=== PATIENT | male | born 1960 | race Two or more races ===

== ENCOUNTER → 2016-03-27 | Outpatient (CLI) | payer OTHER ==
[~2016-03-27] MED LIST: ASPI-781 PO; ASPI325T32 PO; HYDR-905 PO; IBUP-1542 PO; LISI-313 PO; LYRI25 PO; PANT40TA4 PO; ULT50 PO
--- NOTE | 2016-03-27 16:46 | RADRPT ---
PROCEDURE: Limited x-ray of both lower extremities. CLINICAL INDICATION: Bilateral leg pain. TECHNIQUE: Single frontal view of both lower extremities was obtained from the hips to the calves. COMPARISON: 05/10/2015. FINDINGS: There are moderate degenerative changes of the right knee. There is a new left knee total arthropla sty. There is an old healed fracture of the midshaft of the right fibula. The hips are grossly nor mal. IMPRESSION: 1. New left knee total arthroplasty. 2. No other change from 05/10/2015. RPTAT: QQ .Vladimir Gunderson MD, MD Date Time Electronically viewed and signed by .Vladimir Gunderson MD, MD on 03/27/2016 16:45 .R/
== END | disposition home or self-care (01) ==
LOC: HKI 09:20
PROVIDERS: ATTEND Orthopaedic Surgery
DX: Z01.818 Encounter for other preprocedural examination (principal); M25.562 Pain in left knee; M21.161 Varus deformity, not elsewhere classified, right knee; Z96.652 Presence of left artificial knee joint
CPT/HCPCS: 77073; Z7500; G0463

== ENCOUNTER 2016-04-02 09:32 | Inpatient (IN) | payer OTHER ==
[~2016-04-02] VITALS: Ht 172.7 cm; Wt 93.6 kg
[2016-04-02] VITALS (18 sets, daily range): BP systolic 116–165; BP diastolic 69–94; PULSE 71–88; RESP 13–27; Ht 172.7 cm; Wt 93.6 kg
[~2016-04-02 09:32] MED LIST changes: -ASPI325T32 PO; +BUPIVACAINE LIPOSOME/PF 266 MG/20 ML VIAL INFIL SCH; +CEFAZOLIN 1 GM INJ ONE; +CELECOXIB 400 MG PO X1 DOSE PO SCH; +DEXAMETHASONE 4 MG/ML 1 ML INJ ONE; +EXPAREL NOTE (BUPIVICAINE LIPOSOMAL) XX SCH; +GLYCOPYRROLATE 1 MG INJ ONE; -HYDR-905 PO; +LACTATED RINGER'S 1,000 ML IV SCH; -LYRI25 PO; +PAIN COCKTAIL - VANCOMYCIN IRR SCH; -PANT40TA4 PO; +PREGABALIN 300 MG PO X1 PO SCH; +PROPOFOL 1000 MG INJ ONE; +SOD CHLORIDE 0.9% IV SCH; +SOD CHLORIDE 0.9% IVPB SCH; +SUCCINYLCHOLINE CHLORIDE 100 MG/5 ML SYG IV ONE; +TRANEXAMIC ACID IV SCH; +TRANEXAMIC ACID IVPB SCH; +VANCOMYCIN 1 GM/NS 250 ML X1 BEFORE INCISION IVPB SCH; +oxyCODONE (CR) 10 MG TAB [oxyCONTIN] X1 DOSE PO SCH; +traMADOL 50 MG TAB X 1 DOSE PO SCH
--- NOTE | 2016-04-02 14:13 | HPN ---
Date/Time of Note Date/Time of Note DATE: 04/02/16 TIME: 14:12 Interval H&P Admission Note Pt. seen H&P reviewed: No system changes No change from H&P on 03/19/16 by Kelly Morales. RADHA NIXON MD Apr 02, 2016 14:13
[2016-04-02] MEDS ORDERED: POLYMYXIN B 500000 UNIT INJ ONE (14:45)
[2016-04-02] MEDS ORDERED: SODIUM CL BACTERIOSTATIC 30 ML INJ ONE (14:45)
[2016-04-02] MEDS ORDERED: TOBRAMYCIN 1.2 GM POWDER ONE (14:45)
[2016-04-02] MEDS ORDERED: DEXAMETHASONE 4 MG/ML 1 ML INJ ONE (15:53)
[2016-04-02] MEDS ORDERED: NEOSTIGMINE 3 MG/3 ML SYRINGE ONE (15:56)
[2016-04-02] MEDS ORDERED: PROPOFOL 40 ML ONE (15:56)
[2016-04-02] MEDS ORDERED: ROCURONIUM 50 MG INJ ONE (15:56)
[2016-04-02] MEDS ORDERED: SUCCINYLCHOLINE CHLORIDE 100 MG/5 ML SYG IV ONE ×3 (15:56→18:53)
[2016-04-02] MEDS ORDERED: CEFAZOLIN 1 GM INJ ONE (15:56)
[2016-04-02] MEDS ORDERED: LIDOCAINE 2% (SDV) 5 ML INJ ONE ×2 (15:56→18:52)
[2016-04-02] MEDS ORDERED: BACITRACIN 50000 UNITS INJ ONE (16:20)
[2016-04-02] MEDS ORDERED: MEPERIDINE 25 MG INJ IV PRN (17:00)
[2016-04-02] MEDS ORDERED: HYDROmorphONE (0.2 MG/ML) 10ML SYG IV PRN ×3 (17:00)
[2016-04-02] MEDS ORDERED: ONDANSETRON 4 MG INJ IV PRN ×3 (17:00→20:00)
[2016-04-02] MEDS ORDERED: HYDROmorphONE 1 MG/ML SYG IV PRN ×3 (17:00→20:00)
[2016-04-02] MEDS ORDERED: FENTAnyl 50 MCG/ML VIAL IV PRN ×2 (17:00)
[2016-04-02] MEDS ORDERED: NALOXONE (0.4 MG/ML) INJ IV PRN (17:00)
[2016-04-02] MEDS ORDERED: DIPHENHYDRAMINE 50 MG INJ IV PRN ×2 (17:00)
[2016-04-02] MEDS ORDERED: PROCHLORPERAZINE 10 MG INJ IV PRN (17:00)
[2016-04-02] MEDS: VANCOMYCIN 1 GM INJ ONE ×3 (17:13→17:15)
[2016-04-02] MEDS ORDERED: ONDANSETRON 4 MG INJ ONE (19:03)
[2016-04-02] MEDS ORDERED: DIPHENHYDRAMINE 25 MG CAP PO PRN (20:00)
[2016-04-02] MEDS ORDERED: NACL 0.9% 3 ML SYG IV SCH (20:00)
[2016-04-02] MEDS ORDERED: ASPIRIN (EC) 325 MG TAB PO ONE (20:00)
[2016-04-02] MEDS ORDERED: NA PHOSPHATE/BIPHOS 133 ML ENEMA PR PRN (20:00)
[2016-04-02] MEDS ORDERED: MAGNESIUM HYDROXIDE 30ML CUP PO PRN (20:00)
[2016-04-02] MEDS ORDERED: BISACODYL 10 MG SUPP PR PRN (20:00)
[2016-04-02] MEDS ORDERED: oxyCODONE 5 MG TAB PO PRN (20:00)
--- NOTE | 2016-04-02 20:01 | PN ---
Date/Time of Note Date/Time of Note DATE: 04/02/16 TIME: 19:55 Assessment/Plan Lines/Catheters IV Catheter Type (from Nrsg): Peripheral IV Assessment/Plan Assessment/Plan Stable in PACU s/p revision left TKA -cont vancomycin x 72 hours until culture results -ASA/SCDs -pain meds -monitor drain -check AM labs -OOB with PT POD #1 -d/c kothari in AM -follow up on intra-operative culture results XR of the left knee is pending at this time Subjective 24 Hr Interval Summary Doing well in PACU. Denies pain. Moving all extremities. Exam/Review of Systems Vital Signs Vitals Vital Signs Date Time Temp Pulse Resp B/P Pulse Ox O2 Delivery O2 Flow Rate FiO2 04/02/16 11:30 98.8 84 16 140/94 98 Room Air Intake and Output 04/01/16 04/01/16 04/02/16 15:00 23:00 07:00 Intake Total 0 ml Balance 0 ml Exam Free Text/Dictation Dressing dry Incision clean, dry, and intact without redness or drainage Thigh soft 5/5 Quadriceps, Tibialis Anterior, EHL, Gastroc, Soleus, Peroneals Normal sensation Palpable DT/PT, CR <2 sec No distal edema RYLEY BRIONES PA-C Apr 02, 2016 20:00
--- NOTE | 2016-04-02 20:08 | OPPN ---
Date/Time of Note Date/Time of Note DATE: 04/02/16 TIME: 20:06 Operative/Procedure Note Dictation # [id number] Pre-Operative Diagnosis Mechanical complications Left TKA Post-Operative Diagnosis Same Procedure Revision Left TKA Surgeon: RADHA NIXON MD Etl Architect: RYLEY BRIONES PA-C Anesthesiologist: SKYE CARTAGENA Findings Stiff left TKA Blood Usage/Administration None Implants/Grafts Depuy TC3 Estimated blood loss: 100 - 150 ml's Drains Hemovac x 2 Specimens Aerobic and anaerobic culture x 2 Complications: None Anesthesia type: spinal RADHA NIXON MD Apr 02, 2016 20:08
--- NOTE | 2016-04-02 20:12 | CONS ---
Date/Time of Note Date/Time of Note DATE: 04/02/16 TIME: 20:04 Assessment/Plan Assessment/Plan Additional Assessment/Plan 55 yo male with a past medical history of essential hypertension, ETOH abuse who presents with left knee pain, and schedule TKA revision. 1. s/p Left TKA - post op day #0 - f/u ortho recs, OOB as tolerated, PT eval, pain management, bowel regimen, fall precautions 2. Essential hypertension- continue with lisinopril - hydralazine sbp > 160 3. ETOH abuse - continue with oral thiamine, MVI, folic acid 4. GI ppx - pepcid 5. DVT ppx - as per ortho Thank you Dr. Nixon for letting me participate in the care of this patient. this consult note took greater than 45 min to complete Consultation Date/Type/Reason Admit Date/Time Apr 02, 2016 at 10:27 Date of Consultation: Apr 02, 2016 Type of Consultation: Medicine Reason for Consultation Medical Management Referring Provider: RADHA NIXON MD Hx of Present Illness 55 yo male with a past medical history of essential hypertension, ETOH abuse who presents with left knee pain, and schedule TKA revision. Patient states that the pain was unbearable and causing a lot of discomfort while ambulating. Otherwise denies any chest pain, shortness of breath, loss of consciousness, headaches, urinary/bowel irregularities, fevers/chills, loss of consciousness, nausea/vomiting/diarrhea/constipation, no other constitutional symptoms. 14 point review of systems completed, please refer to HPI for any positive findings Past Medical History ETOH abuse Medical History: hypertension Past Surgical History previous left TKA Family History Significant Family History: cancer (mother from unknown type), diabetes (mother ) Social History Alcohol Use: heavy (4 bottles a day) Smoking Status: Former smoker Drug Use: none Exam/Review of Systems Vital Signs Vitals Vital Signs Date Time Temp Pulse Resp B/P Pulse Ox O2 Delivery O2 Flow Rate FiO2 04/02/16 11:30 98.8 84 16 140/94 98 Room Air Intake and Output 04/01/16 04/01/16 04/02/16 15:00 23:00 07:00 Intake Total 0 ml Balance 0 ml Exam Gen Gladis: mild distress 2/2 left knee pain, AAOx4 HEENT: NC/AT, PERRLA, EOMI, no pharyngeal erythema, no tonsillar exudates, no lymphadenopathy, no JVD, no carotid bruits NECK: supple, no thyromegaly THORAX: symmetrical, no obvious deformities CV: S1S2, RRR, no M/G/R Lungs: CTAB no W/C/R/R Abd: soft, NT/ND, +BS, no rebound, no guarding, neg HSM EXT: no edema, no ecchymosis, no clubbing, left knee with drain - serosanguineous fluid noted Neuro: CN II-XII grossly intact, no focal deficits Psych: good mentation, alert and oriented, good mood and affect Skin: C/D/I Medications Medications Current Medications Miscellaneous Information 1 ea NOTE XX Last administered on 04/02/16t 17:43; Admin Dose 1 EA; Start 04/02/16 at 07:00; Stop 04/06/16 at 06:59 Influenza Virus Vaccine (Fluzone) 0.5 ml ONCE ONCE IM* ; Start 04/03/16 at 09:00 ; Stop 04/03/16 at 09:01 Naloxone HCl (Narcan) 0.1 mg Q2M PRN IV FOR RESP RATE 8 OR LESS; Start at 17:00; Stop 04/03/16 at 16:59 Hydromorphone HCl (Dilaudid) 0.2 mg Q3H PRN IV PAIN LEVEL 1-5; Start 04/02/16 at 17:00; Stop 04/03/16 at 16:59 Hydromorphone HCl (Dilaudid) 0.4 mg Q3H PRN IV PAIN LEVEL 6-10; Start 04/02/16 at 17:00; Stop 04/03/16 at 16:59 Diphenhydramine HCl (Benadryl) 25 mg Q6H PRN IV ITCHING; Start 04/02/16 at 17: 00; Stop 04/03/16 at 16:59 Ondansetron HCl (Zofran Inj) 4 mg Q6H PRN IV NAUSEA AND/OR VOMITING; Start 01/07 at 17:00; Stop 04/03/16 at 16:59 Prochlorperazine (Compazine Inj) 10 mg ONCE PRN IV NAUSEA AND/OR VOMITING; Start 04/02/16 at 17:00; Stop 04/03/16 at 16:59 Lisinopril 5 mg 5 mg DAILY PO ; Start 04/03/16 at 09:00 Lactated Ringer's (Lr) 1,000 ml @ 125 mls/hr Q8H IV ; Start 04/02/16 at 19:48 Ketorolac Tromethamine (Toradol) 15 mg Q8H IV ; Start 04/02/16 at 20:00; Stop at 12:01 Celecoxib 200 mg 200 mg DAILY PO ; Start 04/03/16 at 09:00 Acetaminophen (Ofirmev 1000mg/ 100ml Iv) 100 ml @ 400 mls/hr Q6 IVPB ; Start at 00:00; Stop 04/03/16 at 23:59 Tramadol HCl (Ultram) 50 mg Q6 PO ; Start 04/02/16 at 20:00; Stop 04/05/16 at 19 :59 Oxycodone HCl (Roxicodone) 5 mg Q4H PRN PO PAIN LEVEL 1-3; Start 04/02/16 at 20 :00 Oxycodone HCl (Roxicodone) 10 mg Q4H PRN PO PAIN LEVEL 4-7; Start 04/02/16 at 20:00 Hydromorphone HCl 1 mg 1 mg Q3H PRN IV PAIN LEVEL 8-10; Start 04/02/16 at 20:00 Vancomycin HCl (Vancocin) 250 ml @ 125 mls/hr Q12 IVPB ; Start 04/02/16 at 21: 00; Stop 04/05/16 at 20:59; Status UNV Ondansetron HCl (Zofran Inj) 4 mg Q6H PRN IV NAUSEA AND/OR VOMITING; Start 01/07 at 20:00 Bisacodyl (Dulcolax Supp) 10 mg Q12H PRN [place] CONSTIPATION; Start 04/02/16 at 20: 00 Magnesium Hydroxide (Milk Of Mag) 30 ml BID PRN PO CONSTIPATION; Start at 20:00 Sodium Biphosphate/ Sodium Phosphate (Fleet Enema) 133 ml DAILY PRN [place] CONSTIPATION; Start 04/02/16 at 20:00 Docusate Sodium (Colace) 100 mg BID PO ; Start 04/02/16 at 21:00 Diphenhydramine HCl (Benadryl) 25 mg Q6H PRN PO PRURITUS; Start 04/02/16 at 20: 00 Aspirin (Ecotrin) 325 mg BID PO ; Start 04/03/16 at 09:00 Pantoprazole (Protonix Tab) 40 mg BID@,18 PO ; Start 04/03/16 at 06:00 Pregabalin (Lyrica) 50 mg BID PO ; Start 04/02/16 at 21:00 AMNA GAINES MD Apr 02, 2016 20:11
[2016-04-02] MEDS: KETOROLAC 15 MG INJ IV SCH (20:19)
[2016-04-02 20:24] LABS: HEMATOCRIT 38.4 % (42.0-52.0); HEMOGLOBIN 13.2 g/dl (14.0-18.0)
[2016-04-02] MEDS: LACTATED RINGER'S 1,000 ML IV SCH (20:24)
--- NOTE | 2016-04-02 20:25 | RADRPT ---
PROCEDURE: XR Knee. CLINICAL INDICATION: Postoperative left knee for revision arthroplasty. TECHNIQUE: 2 views of the left knee were obtained. The images reviewed on a PACS workstation. COMPARISON: None. FINDINGS: Revision arthroplasty of the left knee with patellar resurfacing. Antibiotic impregnated radiopaque methylmethacrylate cement is seen distributed throughout the left knee joint compartment. Left kne e joint post surgical drains, with mild fluid and air over the joint. The bones appear intact, with no evidence of fracture, erosion, demineralization, or dislocation. Th e alignment of the femorotibial and patellofemoral joints appears normal. No joint space narrowing i s seen. IMPRESSION: 1. Revision arthroplasty with antibiotic impregnated radiopaque methylmethacrylate cement within th e joint compartment. 2. Otherwise, no evident hardware complication or acute fracture. RPTAT: [facility] Physician Armando Date Time Electronically viewed and signed by Physician Armando on 04/02/2016 20:25 RS/
--- NOTE | 2016-04-02 20:29 | RADRPT ---
PROCEDURE: Fluoroscopy services. CLINICAL INDICATION: Revision arthroplasty of the left knee. TECHNIQUE: Fluoroscopy services during left knee revision arthroplasty. COMPARISON: 03/27/2016. FINDINGS: Fluoroscopy services were provided to department of surgery during left knee revision arthroplasty. 9 intraoperative spot films were obtained at intermediate stages during this procedure and demonstra te new revision arthroplasty of the left knee. 0.4 minutes of fluoroscopy time were employed in this procedure. IMPRESSION: Fluoroscopy services during left knee revision arthroplasty. RPTAT: [facility] Physician Armando Date Time Electronically viewed and signed by Physician Armando on 04/02/2016 20:29 RS/
[2016-04-02] MEDS ORDERED: hydrALAzine 20 MG INJ IV PRN (20:30)
[2016-04-02 20:32] LABS: ADD UMIC NO; URINE BILIRUBIN (Dip) NEGATIVE (NEGATIVE); URINE BLOOD (Dip) NEGATIVE (NEGATIVE); URINE COLOR LT. YELLOW (YELLOW); URINE GLUCOSE (Dip) NEGATIVE (NEGATIVE); URINE KETONES (Dip) NEGATIVE (NEGATIVE); URINE LEUKOCYTE ESTERASE (Dip) NEGATIVE (NEGATIVE); URINE NITRITE (Dip) NEGATIVE (NEGATIVE); URINE TOTAL PROTEIN (Dip) NEGATIVE (NEGATIVE); URINE UROBILINOGEN (Dip) 0.2 E.U./dL (0.1-1.0)
[2016-04-02 20:39] LABS: CALCIUM 8.6 mg/dl (8.4-10.2); CREATININE 0.94 mg/dl (0.61-1.24); POTASSIUM 4.7 mmol/L (3.5-5.1)
[2016-04-02] MEDS: DOCUSATE SODIUM 100 MG CAP PO SCH (21:00)
[2016-04-02] MEDS: PREGABALIN 25 MG CAP PO SCH (21:03)
[2016-04-02] MEDS: traMADol 50 MG TAB PO SCH ×2 (21:03→23:06)
--- NOTE | 2016-04-02 21:08 | OPR ---
DATE OF OPERATION: 04/02/2016 PREOPERATIVE DIAGNOSIS: Mechanical complication of left total knee arthroplasty. POSTOPERATIVE DIAGNOSIS: Mechanical complication of left total knee arthroplasty. OPERATION PERFORMED: Revision left total knee arthroplasty. SURGEON: Kedar Clay MD TANK CAR MECHANIC: FRANKY Mock COMPONENTS USED: DePuy size 5 TC3 femur, with a +2 five-degree bolt, a 40-mm universal femoral sleeve, and a 75 x 14 mm femoral stem, size 4 MBT revision tibial tray with a 61-mm metaphyseal sleeve, with a 75 x 14 mm tibial stem, a 12.5 mm polyethylene insert. ANESTHESIA: Spinal, plus general endotracheal intubation, plus periarticular injection. ANESTHESIOLOGIST: Kirk Butler MD TOURNIQUET TIME: 118 minutes. ESTIMATED BLOOD LOSS: 100 mL. INTRAVENOUS FLUIDS: Crystalloid 2600 mL. SPECIMENS: Aerobic and anaerobic culture of joint fluid x2. DRAINS: Hemovac x2. COMPLICATIONS: None. DISPOSITION: Patient tolerated the procedure well; was taken to the recovery room in stable condition. INDICATIONS: The patient is a 55-year-old gentleman who underwent a left total knee arthroplasty approximately a year ago. Despite extensive physical therapy and manipulations, he has had limited range of motion and persistent pain. Infection workup was negative. He had difficulty achieving full extension and flexion beyond 100 degrees. I felt that he would benefit from revision. with possibly a liner exchange or a complete revision, if I was unable to improve his range of motion with just a liner exchange. The risks, benefits, alternatives of the procedure were explained in detail to the patient. I explained the risks to include, but not be limited to, bleeding and the possible need for blood transfusion, infection, pain, stiffness, neurovascular injury, or possible numbness, weakness, and/or paralysis anywhere from the knee down to the toes, fracture, ligamentous injury, need for additional future surgery including possible repeat revision total knee arthroplasty, possible loss of limb including above-knee amputation, wound healing problems, blood clots, pulmonary embolism, and anesthetic complications such as heart attack, stroke, GI bleed, pneumonia and/or . Ample time was allowed for the patient to ask questions, all of which were addressed and answered. He understood the risks involved and wished to proceed. Informed consent was signed prior to the procedure. PROCEDURE IN DETAIL: The left knee was initialed with a marking pen in the preoperative holding area to identify the correct operative site. The patient was then brought to the operating room and transferred from the [facility] to the operating table, where he was administered a spinal anesthetic and then anesthetized and intubated. A Shoemaker catheter was placed. A timeout was performed to confirm the left side was the correct operative site. He was given 1 g of vancomycin and 1 g of intravenous Ancef within 1 hour prior to the incision. A tourniquet was placed on the left proximal thigh. The left knee and lower extremity were prepped and draped in the usual sterile fashion. The left lower extremity was elevated and exsanguinated with the Esmarch tourniquet and the proximal thigh tourniquet was inflated to 300 mmHg. The knee was flexed and the previous midline incision was incised; it was carried down to subcutaneous tissue and fat with sharp dissection. Limited medial and lateral flaps were raised. The previous medial parapatellar arthrotomy was incised. The synovial fluid was normal in color and consistency. I swabbed for aerobic and anaerobic culture x2. A medial release was performed at the joint line to the mid coronal plane. The patella was subluxed laterally and the knee flexed. The polyethylene insert was removed. I trialed with a 5-mm insert; the previous insert was 6 mm. The 5 mm insert was the thinnest insert available. I got the 5-mm insert in place, but the knee was still unable to come to full extension, and flexion was limited to 100 degrees, and I felt he would need to have the entire knee revised. At this point, the Biomet Ultra-Drive device was used to free up the cement bone interface and the femoral and tibial components were removed. Please note , both the femoral and tibial components were well-fixed. The patellar button was well-fixed and left in place. At this point, the tibia was hand reamed up to 14 mm, then broached and then sized to be a 4. The trial was placed in position. The extension gap was checked and accommodated the 12.5 spacer block. At this point, the femoral canal was opened and reamed by hand up to 14 mm and then broached as well, and then the distal cutting block was pinned into place for a 5-degree cleanup cut, taking 2 mm off the distal femur. The oscillating saw was used to make the cut. The size 5, 4-in-1 cutting block was pinned into place with a 12.5 spacer block on top of the tibia, with the knee in 90 degrees of flexion to set the rotation. This was pinned into place. The anterior and posterior chamfer cuts were made. The central box was cut out for a TC3. I had also broached the femur with the metaphyseal sleeves getting a good bite. At this point, the trials were assembled. The knee came to full extension, as evidenced by the fact that with the foot on my abdomen and axial loading, there was no tendency for the knee to flex. The knee was able be flexed to 125 degrees with good patellar tracking, no lateral tilt or subluxation and no varus or valgus instability. C-arm imaging was brought in showing the components to be in good position on AP and lateral views. At this point, the trials were removed. The real components were opened and assembled on the back table. Three bags of cement were mixed with vancomycin mixed into it. Once the cement was in a doughy stage, the real components were cemented into place. The knee was held in full extension. As the cement was hardening, the synovial/capsule layer was infiltrated with a mixture of 0.5% bupivacaine, Duramorph, epinephrine, cefuroxime, Toradol, clonidine, and liposomal bupivacaine. Once the cement was completely hardened, the trial insert was removed. The real 12.5 insert was placed into the tibia and reduced onto the femur. The tourniquet was let down, and there was good hemostasis achieved. The knee was irrigated with antibiotic saline, then Betadine and saline, then additional antibiotic saline pulsatile lavage. A Hemovac drain was placed in the deep portion of the wound and brought out the anterolateral thigh. Stimulan beads that had been mixed with vancomycin and tobramycin were placed in the knee. The capsule was closed with a few interrupted #1 Ethibonds and then running #2 Stratafix. Knee flexion was checked against gravity and came to 120 degrees. The subcutaneous layer was irrigated and closed over a 2nd drain with a running 2-0 Stratafix and then 3-0 Stratafix in the subcutaneous layer and then interrupted 3-0 Prolene in a vertical mattress fashion on the skin edges. The drains were secured with 3-0 nylons. Sponge and needle counts correct at the end of case. The wound was covered with a silver Mepilex and wrapped with sterile cast padding and bias dressing. The patient was awakened, extubated and taken to the recovery room in stable condition. Dictated By: KEDAR WYLIE/NTS Conf#: [id number] DID#: [id number]
[2016-04-02] MEDS: ACETAMINOPHEN 1000MG/100ML IV 100 ML IVPB SCH (23:05)
[2016-04-03] MEDS: VANCOMYCIN 1 GM (PMX) 250 ML IVPB SCH ×2 (01:27→14:33)
[2016-04-03] MEDS: LACTATED RINGER'S 1,000 ML IV SCH ×3 (03:48→19:48)
[2016-04-03] MEDS: PANTOPRAZOLE (EC) 40 MG TAB PO SCH ×2 (05:18→17:21)
[2016-04-03] MEDS: traMADol 50 MG TAB PO SCH ×3 (05:18→17:21)
[2016-04-03] MEDS: KETOROLAC 15 MG INJ IV SCH ×2 (05:18→12:58)
[2016-04-03] MEDS: ACETAMINOPHEN 1000MG/100ML IV 100 ML IVPB SCH ×3 (05:18→17:21)
[2016-04-03 05:21] LABS: HEMATOCRIT 33.6 % (42.0-52.0); HEMOGLOBIN 11.8 g/dl (14.0-18.0)
[2016-04-03 05:31] LABS: POTASSIUM 4.6 mmol/L (3.5-5.1)
[2016-04-03 05:33] LABS: CREATININE 0.7 mg/dl (0.61-1.24)
[2016-04-03 05:34] LABS: CALCIUM 8.7 mg/dl (8.4-10.2)
[2016-04-03 05:44] VITALS: BP 114/73; PULSE 61; RESP 18
[2016-04-03 07:30] LABS: ADD UMIC YES; URINE BILIRUBIN (Dip) NEGATIVE (NEGATIVE); URINE BLOOD (Dip) 1+ (NEGATIVE); URINE COLOR LT. YELLOW (YELLOW); URINE GLUCOSE (Dip) NEGATIVE (NEGATIVE); URINE KETONES (Dip) NEGATIVE (NEGATIVE); URINE LEUKOCYTE ESTERASE (Dip) TRACE (NEGATIVE); URINE NITRITE (Dip) NEGATIVE (NEGATIVE); URINE TOTAL PROTEIN (Dip) NEGATIVE (NEGATIVE); URINE UROBILINOGEN (Dip) 0.2 E.U./dL (0.1-1.0)
[2016-04-03 08:04] VITALS: BP 115/78; RESP 20
--- NOTE | 2016-04-03 08:42 | PN ---
Date/Time of Note Date/Time of Note DATE: 04/03/16 TIME: 08:39 Assessment/Plan Lines/Catheters IV Catheter Type (from Nrsg): Peripheral IV Assessment/Plan Assessment/Plan Stable POD #1, s/p revision left TKA -cont vanco until final culture results -pain meds -ASA/SCDs -empty and monitor drain, will likely remove tomorrow -OOB with PT -encourage incentive spirometry -check AM labs -d/c planning. Will plan to d/c home on 04/05/16 after final culture results Subjective 24 Hr Interval Summary Doing well. No acute overnight events. Pain minimal. Large drain output. VSS, afebrile. Exam/Review of Systems Vital Signs Vitals Vital Signs Date Time Temp Pulse Resp B/P Pulse Ox O2 Delivery O2 Flow Rate FiO2 04/03/16 08:04 98.3 64 20 115/78 96 04/03/16 05:44 Room Air Intake and Output 04/02/16 04/02/16 04/03/16 14:59 22:59 06:59 Intake Total 1000 ml 2575 ml Output Total 820 ml 2370 ml Balance 180 ml 205 ml Exam Free Text/Dictation Hemovac: 890cc Dressing dry Incision clean, dry, and intact without redness or drainage Thigh soft 5/5 Quadriceps, Tibialis Anterior, EHL, Gastroc, Soleus, Peroneals Normal sensation Palpable DT/PT, CR <2 sec No distal edema Results Result Diagram: 04/03/1641904/03/16419 RYLEY BIRONES PA-C Apr 03, 2016 08:41
[2016-04-03] MEDS ORDERED: INFLUENZA VIRUS VACCINE 0.5 ML SYG IM* ONE (09:00)
[2016-04-03] MEDS ORDERED: CELECOXIB 200 MG CAP PO SCH (09:00)
[2016-04-03] MEDS: DOCUSATE SODIUM 100 MG CAP PO SCH ×2 (09:11→20:07)
[2016-04-03] MEDS: MULTIVITAMINS THERAPEUTIC TAB PO SCH (09:11)
[2016-04-03] MEDS: ASPIRIN (EC) 325 MG TAB PO SCH ×2 (09:11→20:07)
[2016-04-03] MEDS: PREGABALIN 25 MG CAP PO SCH ×2 (09:11→20:10)
[2016-04-03] MEDS: FOLIC ACID 1 MG TAB PO SCH (09:11)
[2016-04-03] MEDS: THIAMINE 100 MG TAB PO SCH (09:11)
[2016-04-03] MEDS: LISINOPRIL 5 MG TAB PO SCH (09:12)
--- NOTE | 2016-04-03 10:25 | PN ---
Date/Time of Note Date/Time of Note DATE: 04/03/16 TIME: : Assessment/Plan VTE Prophylaxis VTE Prophylaxis Intervention: other Lines/Catheters IV Catheter Type (from Nrsg): Peripheral IV Assessment/Plan Chief Complaint/Hosp Course Assessment and plan: 1. s/p Left TKA - post op day #0 - f/u ortho recs, OOB as tolerated, PT eval, pain management, bowel regimen, fall precautions 2. Essential hypertension- continue with lisinopril - hydralazine sbp > 160 3. ETOH abuse - continue with oral thiamine, MVI, folic acid 4. Anemia-stable, continue to monitor 4. GI ppx - pepcid 5. DVT ppx - as per ortho We will continue monitor patient closely for recommendation management treatment as per clinical course Problems: Subjective 24 Hr Interval Summary Free Text/Dictation Able to ambulate with min assist Denies of any chest pain or shortness of breath Tolerating oral intake Exam/Review of Systems Vital Signs Vitals Vital Signs Date Time Temp Pulse Resp B/P Pulse Ox O2 Delivery O2 Flow Rate FiO2 04/03/16 08:04 98.3 64 20 115/78 96 04/03/16 05:44 Room Air Intake and Output 04/02/16 04/02/16 04/03/16 15:00 23:00 07:00 Intake Total 1000 ml 2575 ml Output Total 820 ml 2370 ml Balance 180 ml 205 ml Exam General: The patient is well-developed, Not in acute distress. HEENT: Atraumatic, normocephalic. The pupils are equal and round . Neck: Supple with full range of motion. Chest: Normal expansion of the thorax during inspiration Lungs: Clear to auscultation bilaterally Heart: Normal S1-S2, Regular rhythm and rate. Abdomen: Soft , nontender, nondistended , bowel sounds are present. Extremities: Normal to inspection, no edema no cyanosis, surgical site is dry and clean drain is in place Neurologic: Normal mental status,The patient is awake, alert and oriented . Results Result Diagram: 04/03/16 0420 04/03/16 0420 Results 24 hrs Laboratory Tests Test 04/02/16 19:53 04/02/16 20:15 04/03/16 04:20 04/03/16 06:30 Urine Bilirubin NEGATIVE NEGATIVE Urine Clarity CLEAR CLEAR Urine Color LT. YELLOW LT. YELLOW Urine Glucose NEGATIVE NEGATIVE Urine Hemoglobin NEGATIVE 1+ H Urine Ketones NEGATIVE NEGATIVE Urine Leukocyte Esterase NEGATIVE TRACE H Urine Nitrite NEGATIVE NEGATIVE Urine Specific [place] 1.010 1.010 Urine Total Protein NEGATIVE NEGATIVE Urine Urobilinogen 0.2 E.U./dL 0.2 E.U./dL Urine pH 7.5 6.0 Anion Gap 16 14 Blood Urea Nitrogen 14 12 Calcium Level 8.6 8.7 Carbon Dioxide Level 25 27 Chloride Level 105 101 Creatinine 0.94 0.70 Glucose Level 140 126 Hematocrit 38.4 L 33.6 L Hemoglobin 13.2 #L 11.8 L Potassium Level 4.7 4.6 Sodium Level 141 137 Urine Microscopic RBC 2-5 Urine Microscopic WBC NONE SEEN Medications Medications Current Medications Miscellaneous Information 1 ea NOTE XX Last administered on 04/02/16t 17:43; Admin Dose 1 EA; Start 04/02/16 at 07:00; Stop 04/06/16 at 06:59 Naloxone HCl (Narcan) 0.1 mg Q2M PRN IV FOR RESP RATE 8 OR LESS; Start at 17:00; Stop 04/03/16 at 16:59 Hydromorphone HCl (Dilaudid) 0.2 mg Q3H PRN IV PAIN LEVEL 1-5; Start 04/02/16 at 17:00; Stop 04/03/16 at 16:59 Hydromorphone HCl (Dilaudid) 0.4 mg Q3H PRN IV PAIN LEVEL 6-10; Start 04/02/16 at 17:00; Stop 04/03/16 at 16:59 Diphenhydramine HCl (Benadryl) 25 mg Q6H PRN IV ITCHING; Start 04/02/16 at 17: 00; Stop 04/03/16 at 16:59 Ondansetron HCl (Zofran Inj) 4 mg Q6H PRN IV NAUSEA AND/OR VOMITING; Start 01/07 at 17:00; Stop 04/03/16 at 16:59 Prochlorperazine (Compazine Inj) 10 mg ONCE PRN IV NAUSEA AND/OR VOMITING; Start 04/02/16 at 17:00; Stop 04/03/16 at 16:59 Lisinopril 5 mg 5 mg DAILY PO Last administered on 04/03/16t 09:12; Admin Dose 5 MG; Start 04/03/16 at 09:00 Lactated Ringer's (Lr) 1,000 ml @ 125 mls/hr Q8H IV Last administered on 20:24; Admin Dose 125 MLS/HR; Start 04/02/16 at 19:48 Ketorolac Tromethamine 15 mg 15 mg Q8H IV Last administered on 04/03/16 05:18 ; Admin Dose 15 MG; Start 04/02/16 at 20:00; Stop 04/03/16 at 12:01 Acetaminophen (Ofirmev 1000mg/ 100ml Iv) 100 ml @ 400 mls/hr Q6 IVPB Last administered on 04/03/16 05:18; Admin Dose 400 MLS/HR; Start 04/03/16 at 00:00 ; Stop 04/03/16 at 23:59 Tramadol HCl (Ultram) 50 mg Q6 PO Last administered on 04/03/16 05:18; Admin Dose 50 MG; Start 04/02/16 at 20:00; Stop 04/05/16 at 19:59 Oxycodone HCl (Roxicodone) 5 mg Q4H PRN PO PAIN LEVEL 1-3; Start 04/02/16 at 20 :00 Oxycodone HCl (Roxicodone) 10 mg Q4H PRN PO PAIN LEVEL 4-7; Start 04/02/16 at 20:00 Hydromorphone HCl 1 mg 1 mg Q3H PRN IV PAIN LEVEL 8-10; Start 04/02/16 at 20:00 Vancomycin HCl (Vancocin) 250 ml @ 125 mls/hr Q12H IVPB Last administered on 01:27; Admin Dose 125 MLS/HR; Start 04/03/16 at 01:00; Stop 04/05/16 at 14:59 Ondansetron HCl (Zofran Inj) 4 mg Q6H PRN IV NAUSEA AND/OR VOMITING; Start 01/07 at 20:00 Bisacodyl (Dulcolax Supp) 10 mg Q12H PRN [place] CONSTIPATION; Start 04/02/16 at 20: 00 Magnesium Hydroxide (Milk Of Mag) 30 ml BID PRN PO CONSTIPATION; Start at 20:00 Sodium Biphosphate/ Sodium Phosphate (Fleet Enema) 133 ml DAILY PRN [place] CONSTIPATION; Start 04/02/16 at 20:00 Docusate Sodium (Colace) 100 mg BID PO Last administered on 04/03/16 09:11; Admin Dose 100 MG; Start 04/02/16 at 21:00 Diphenhydramine HCl (Benadryl) 25 mg Q6H PRN PO PRURITUS; Start 04/02/16 at 20: 00 Aspirin (Ecotrin) 325 mg BID PO Last administered on 04/03/16 09:11; Admin Dose 325 MG; Start 04/03/16 at 09:00 Pantoprazole (Protonix Tab) 40 mg BID@,18 PO Last administered on 04/03/16 05:18; Admin Dose 40 MG; Start 04/03/16 at 06:00 Pregabalin (Lyrica) 50 mg BID PO Last administered on 04/03/16 09:11; Admin Dose 50 MG; Start 04/02/16 at 21:00 Hydralazine HCl (Apresoline) 10 mg Q6H PRN IV sbp > 160; Start 04/02/16 at 20: 30 Thiamine HCl (Vitamin B1) 100 mg DAILY PO Last administered on 04/03/16 09:11 ; Admin Dose 100 MG; Start 04/03/16 at 09:00 Folic Acid (Folic Acid) 1 mg DAILY PO Last administered on 04/03/16 09:11; Admin Dose 1 MG; Start 04/03/16 at 09:00 Multivitamins Therapeutic (Theragran) 1 tab DAILY PO Last administered on 09:11; Admin Dose 1 TAB; Start 04/03/16 at 09:00 GIO JOSÉ MD Apr 03, 2016 10:25
[2016-04-03 20:56] VITALS: BP 112/70; RESP 18
[2016-04-04 00:19] VITALS: BP 110/68; PULSE 70; RESP 18
[2016-04-04] MEDS: VANCOMYCIN 1 GM (PMX) 250 ML IVPB SCH ×2 (00:27→12:25)
[2016-04-04] MEDS: traMADol 50 MG TAB PO SCH ×5 (00:27→23:55)
[2016-04-04] MEDS: LACTATED RINGER'S 1,000 ML IV SCH ×3 (03:48→19:48)
[2016-04-04] MEDS: PANTOPRAZOLE (EC) 40 MG TAB PO SCH ×2 (04:04→17:44)
[2016-04-04 05:24] LABS: HEMATOCRIT 27.1 % (42.0-52.0); HEMOGLOBIN 9.4 g/dl (14.0-18.0)
[2016-04-04 05:38] LABS: POTASSIUM 4.4 mmol/L (3.5-5.1)
[2016-04-04 05:40] LABS: CREATININE 0.9 mg/dl (0.61-1.24)
[2016-04-04 05:41] LABS: CALCIUM 8.6 mg/dl (8.4-10.2)
[2016-04-04 07:58] VITALS: BP 123/75; RESP 18
[2016-04-04] MEDS: LISINOPRIL 5 MG TAB PO SCH (08:37)
[2016-04-04] MEDS: ASPIRIN (EC) 325 MG TAB PO SCH ×2 (08:37→21:06)
[2016-04-04] MEDS: DOCUSATE SODIUM 100 MG CAP PO SCH ×2 (08:37→21:05)
[2016-04-04] MEDS: THIAMINE 100 MG TAB PO SCH (08:37)
[2016-04-04] MEDS: MULTIVITAMINS THERAPEUTIC TAB PO SCH (08:37)
[2016-04-04] MEDS: FOLIC ACID 1 MG TAB PO SCH (08:37)
[2016-04-04] MEDS: PREGABALIN 25 MG CAP PO SCH ×2 (08:40→21:06)
[2016-04-04] MEDS: oxyCODONE 5 MG TAB PO PRN ×2 (08:41→10:26)
--- NOTE | 2016-04-04 09:44 | PN ---
Date/Time of Note Date/Time of Note DATE: 04/04/16 TIME: 09:42 Assessment/Plan VTE Prophylaxis VTE Prophylaxis Intervention: other (Aspirin) Lines/Catheters IV Catheter Type (from Nrs): Saline Lock Assessment/Plan Chief Complaint/Hosp Course Assessment and plan: 1. s/p Left TKA - post op day #0 - f/u ortho recs, OOB as tolerated, PT eval, pain management, bowel regimen, fall precautions 2. Essential hypertension- continue with lisinopril - hydralazine sbp > 160 3. ETOH abuse - continue with oral thiamine, MVI, folic acid 4. Anemia-stable, continue to monitor, follow-up iron panel and vitamin B12 and folate 4. GI ppx - pepcid 5. DVT ppx - as per ortho We will continue monitor patient closely for recommendation management treatment as per clinical course Problems: Subjective 24 Hr Interval Summary Free Text/Dictation No acute changes Patient denies of any chest pain or shortness of breath Denies of having any left knee pain Tolerating oral intake Exam/Review of Systems Vital Signs Vitals Vital Signs Date Time Temp Pulse Resp B/P Pulse Ox O2 Delivery O2 Flow Rate FiO2 04/04/16 07:58 98.0 62 18 123/75 97 04/04/16 00:19 Room Air Intake and Output 04/03/16 04/03/16 04/04/16 15:00 23:00 07:00 Intake Total 100 ml 2445 ml 1650 ml Output Total 450 ml 300 ml 1200 ml Balance -350 ml 2145 ml 450 ml Exam General: The patient is well-developed, Not in acute distress. HEENT: Atraumatic, normocephalic. The pupils are equal and round . Neck: Supple with full range of motion. Chest: Normal expansion of the thorax during inspiration Lungs: Clear to auscultation bilaterally Heart: Normal S1-S2, Regular rhythm and rate. Abdomen: Soft , nontender, nondistended , bowel sounds are present. Extremities: Normal to inspection, no edema no cyanosis, surgical site is dry and clean, drain in place, Neurologic: Normal mental status,The patient is awake, alert and oriented . Results Result Diagram: 04/04/1641904/04/16419 Results 24 hrs Laboratory Tests Test 04/04/16 04:20 Anion Gap 12 Blood Urea Nitrogen 15 Calcium Level 8.6 Carbon Dioxide Level 28 Chloride Level 104 Creatinine 0.90 Glucose Level 91 Hematocrit 27.1 L Hemoglobin 9.4 #L Potassium Level 4.4 Sodium Level 140 Medications Medications Current Medications Miscellaneous Information 1 ea NOTE XX Last administered on 04/02/16 17:43; Admin Dose 1 EA; Start 04/02/16 at 07:00; Stop 04/06/16 at 06:59 Lisinopril 5 mg 5 mg DAILY PO Last administered on 04/04/16 08:37; Admin Dose 5 MG; Start 04/03/16 at 09:00 Lactated Ringer's (Lr) 1,000 ml @ 125 mls/hr Q8H IV Last administered on 20:24; Admin Dose 125 MLS/HR; Start 04/02/16 at 19:48 Tramadol HCl (Ultram) 50 mg Q6 PO Last administered on 04/04/16 04:04; Admin Dose 50 MG; Start 04/02/16 at 20:00; Stop 04/05/16 at 19:59 Oxycodone HCl (Roxicodone) 5 mg Q4H PRN PO PAIN LEVEL 1-3 Last administered on 04/04/16 08:41; Admin Dose 5 MG; Start 04/02/16 at 20:00 Oxycodone HCl (Roxicodone) 10 mg Q4H PRN PO PAIN LEVEL 4-7; Start 04/02/16 at 20:00 Hydromorphone HCl 1 mg 1 mg Q3H PRN IV PAIN LEVEL 8-10; Start 04/02/16 at 20:00 Vancomycin HCl (Vancocin) 250 ml @ 125 mls/hr Q12H IVPB Last administered on 00:27; Admin Dose 125 MLS/HR; Start 04/03/16 at 01:00; Stop 04/05/16 at 14:59 Ondansetron HCl (Zofran Inj) 4 mg Q6H PRN IV NAUSEA AND/OR VOMITING; Start 01/07 at 20:00 Bisacodyl (Dulcolax Supp) 10 mg Q12H PRN [place] CONSTIPATION; Start 04/02/16 at 20: 00 Magnesium Hydroxide (Milk Of Mag) 30 ml BID PRN PO CONSTIPATION; Start at 20:00 Sodium Biphosphate/ Sodium Phosphate (Fleet Enema) 133 ml DAILY PRN [place] CONSTIPATION; Start 04/02/16 at 20:00 Docusate Sodium (Colace) 100 mg BID PO Last administered on 04/04/16 08:37; Admin Dose 100 MG; Start 04/02/16 at 21:00 Diphenhydramine HCl (Benadryl) 25 mg Q6H PRN PO PRURITUS; Start 04/02/16 at 20: 00 Aspirin (Ecotrin) 325 mg BID PO Last administered on 04/04/16 08:37; Admin Dose 325 MG; Start 04/03/16 at 09:00 Pantoprazole (Protonix Tab) 40 mg BID@,18 PO Last administered on 04/04/16 04:04; Admin Dose 40 MG; Start 04/03/16 at 06:00 Pregabalin (Lyrica) 50 mg BID PO Last administered on 04/04/16 08:40; Admin Dose 50 MG; Start 04/02/16 at 21:00 Hydralazine HCl (Apresoline) 10 mg Q6H PRN IV sbp > 160; Start 04/02/16 at 20: 30 Thiamine HCl (Vitamin B1) 100 mg DAILY PO Last administered on 04/04/16 08:37 ; Admin Dose 100 MG; Start 04/03/16 at 09:00 Folic Acid (Folic Acid) 1 mg DAILY PO Last administered on 04/04/16 08:37; Admin Dose 1 MG; Start 04/03/16 at 09:00 Multivitamins Therapeutic (Theragran) 1 tab DAILY PO Last administered on 08:37; Admin Dose 1 TAB; Start 04/03/16 at 09:00 GIO JOSÉ MD Apr 04, 2016 09:44
--- NOTE | 2016-04-04 17:10 | PN ---
Date/Time of Note Date/Time of Note DATE: 04/04/16 TIME: 17:08 Assessment/Plan Lines/Catheters IV Catheter Type (from Nrsg): Saline Lock Assessment/Plan Assessment/Plan Stable POD #2, s/p revision left TKA -cont abx until cultures are negative -pain meds -ASA/SCDs -OOB with PT -drain removed -H&H low, will monitor for now -check AM labs -dressing changed today -d/c planning. Will plan to transfer to ARU tomorrow Subjective 24 Hr Interval Summary Doing well. No acute overnight events. Drain output slowly decreased. Mild pain with PT. VSS, afebrile. Exam/Review of Systems Vital Signs Vitals Vital Signs Date Time Temp Pulse Resp B/P Pulse Ox O2 Delivery O2 Flow Rate FiO2 04/04/16 07:58 98.0 62 18 123/75 97 04/04/16 00:19 Room Air Intake and Output 04/03/16 04/03/16 04/04/16 15:00 23:00 07:00 Intake Total 100 ml 2445 ml 1650 ml Output Total 450 ml 300 ml 1200 ml Balance -350 ml 2145 ml 450 ml Exam Free Text/Dictation Hemovac: 450cc Dressing dry Incision clean, dry, and intact without redness or drainage Thigh soft 5/5 Quadriceps, Tibialis Anterior, EHL, Gastroc, Soleus, Peroneals Normal sensation Palpable DT/PT, CR <2 sec No distal edema Results Result Diagram: 04/04/1641904/04/16419 RYLEY BRIONES PA-C Apr 04, 2016 17:10
--- NOTE | 2016-04-04 17:16 | PDOCDIS ---
Discharge Instructions DIAGNOSIS Discharge Diagnosis: s/p revision left TKA CONDITION Patient Condition: Good HOME CARE INSTRUCTIONS: Diet Instructions: Regular ACTIVITY: Activity Restrictions: Slowly Increase Activity Rest between Activity Avoid heavy lifting Do not operate Machinery Do not operate Power Tool Avoid Heavy Housework Bathing Restrictions: Shower FOLLOW UP/APPOINTMENTS Appointments follow up with Dr. Clay in the office on 04/12/16 OTHER ORDERS: Other Orders: S/P revision TKA Physical Therapy: Three times per week at home x 2 weeks Daily in Rehab/SNF WB STATUS: WBAT 1. Strengthening exercises for both upper and un-operated lower extremities. 2. Gait training with front wheeled walker 3. Active range of motion exercises to operative knee. 4. When not working on knee range of motion exercises, distal towel roll under operative ankle/distal calf to promote full extension. 5. DO NOT PUT ANYTHING BEHIND OPERATIVE KNEE!!! 6. Quadriceps and hamstring strengthening. 7. May switch to cane in contra lateral hand 6 weeks after surgery. 8. Physical Therapy can open case if nursing is not available. 9. Use Ice Machine as instructed from date of surgery while at rest 3X/day. 10. Patient requires mobile SCDs to reduce risk of developing DVT following TKA. Patient will use the mobile SCDs for 30 days postoperatively. Bathing assistance by home health aide twice weekly if Medicare patient. Occupational Therapy: Evaluation for assistive devices and ADL training. Wound Care: Keep incision dry & covered with Tegaderm until first visit with Dr. Clay Anticoagulation Orders: Enteric Coated Aspirin 325 mg po bid x 6 weeks from date of surgery Follow-up:Call for an appointment with Dr. Clay in 1 week after discharged from hospital at DME Orders: FWW , 3-in-1 Commode, Polar ice machine, Mobile SCDs RYLEY BRIONES PA-C Apr 04, 2016 17:16
[2016-04-04] MEDS ORDERED: PANT40TA4 PO (17:18)
[2016-04-04] MEDS ORDERED: ULT50 PO (17:18)
[2016-04-04] MEDS ORDERED: HYDR-905 PO (17:18)
[2016-04-04] MEDS ORDERED: ASPI325T32 PO (17:18)
[2016-04-04] MEDS ORDERED: LYRI25 PO (17:18)
[2016-04-04 20:40] VITALS: BP 118/72; RESP 18
[2016-04-05] MEDS: VANCOMYCIN 1 GM (PMX) 250 ML IVPB SCH (00:45)
[2016-04-05] MEDS: LACTATED RINGER'S 1,000 ML IV SCH ×2 (03:48→11:48)
[2016-04-05] MEDS: traMADol 50 MG TAB PO SCH ×2 (05:43→11:59)
[2016-04-05] MEDS: PANTOPRAZOLE (EC) 40 MG TAB PO SCH (05:43)
[2016-04-05 05:54] LABS: HEMATOCRIT 28.1 % (42.0-52.0); HEMOGLOBIN 9.9 g/dl (14.0-18.0)
[2016-04-05 06:26] LABS: POTASSIUM 4.3 mmol/L (3.5-5.1)
[2016-04-05 06:28] LABS: CREATININE 0.83 mg/dl (0.61-1.24)
[2016-04-05 06:29] LABS: CALCIUM 8.9 mg/dl (8.4-10.2)
[2016-04-05 06:48] LABS: IRON 27 ug/dl (35-150)
[2016-04-05 06:58] LABS: TOTAL IRON BINDING CAPACITY 276 ug/dl (241-421)
[2016-04-05] MEDS: MULTIVITAMINS THERAPEUTIC TAB PO SCH (08:26)
[2016-04-05] MEDS: DOCUSATE SODIUM 100 MG CAP PO SCH (08:26)
[2016-04-05] MEDS: LISINOPRIL 5 MG TAB PO SCH (08:26)
[2016-04-05] MEDS: THIAMINE 100 MG TAB PO SCH (08:26)
[2016-04-05] MEDS: FOLIC ACID 1 MG TAB PO SCH (08:26)
[2016-04-05] MEDS: ASPIRIN (EC) 325 MG TAB PO SCH (08:26)
[2016-04-05] MEDS: oxyCODONE 5 MG TAB PO PRN (08:27)
[2016-04-05] MEDS: PREGABALIN 25 MG CAP PO SCH (08:27)
[2016-04-05 08:39] VITALS: BP 125/77; RESP 19
--- NOTE | 2016-04-05 09:01 | PN ---
Date/Time of Note Date/Time of Note DATE: 04/05/16 TIME: 09:00 Assessment/Plan Lines/Catheters IV Catheter Type (from Nrsg): Saline Lock Assessment/Plan Assessment/Plan Stable POD #3 s/p revision left TKA -d/c abx, cultures neg x 3 days -pain meds -ASA/SCDs -OOB with PT -dressing changed -transfer to ARU today -follow up with Dr. Clay in the office on 04/12/16 Subjective 24 Hr Interval Summary Doing well. No acute overnight events. Pain mild with ambulation, but otherwise doing well. Afebrile, VSS. Accepted at ARU and plan to transfer today Exam/Review of Systems Vital Signs Vitals Vital Signs Date Time Temp Pulse Resp B/P Pulse Ox O2 Delivery O2 Flow Rate FiO2 04/05/16 08:39 97.8 67 19 125/77 98 04/04/16 00:19 Room Air Intake and Output 04/04/16 04/04/16 04/05/16 15:00 23:00 07:00 Intake Total 1770 ml 650 ml Output Total 2075 ml 2250 ml Balance -305 ml -1600 ml Exam Free Text/Dictation Dressing dry Incision clean, dry, and intact without redness or drainage Thigh soft 5/5 Quadriceps, Tibialis Anterior, EHL, Gastroc, Soleus, Peroneals Normal sensation Palpable DT/PT, CR <2 sec No distal edema Results Result Diagram: 04/05/169 04/05/16 0439 RYLEY BRIONES PA-C Apr 05, 2016 09:01
--- NOTE | 2016-04-05 10:02 | PN ---
Date/Time of Note Date/Time of Note DATE: 04/05/16 TIME: 10:00 Assessment/Plan VTE Prophylaxis VTE Prophylaxis Intervention: other Lines/Catheters IV Catheter Type (from Nrs): Saline Lock Assessment/Plan Chief Complaint/Hosp Course Assessment and plan: 1. s/p Left TKA - post op day #0 - f/u ortho recs, OOB as tolerated, PT eval, pain management, bowel regimen, fall precautions 2. Essential hypertension- continue with lisinopril - hydralazine sbp > 160 3. ETOH abuse - continue with oral thiamine, MVI, folic acid 4. Anemia-stable, continue to monitor, recommend to start on ferrous sulfate 4. GI ppx - pepcid 5. DVT ppx - as per ortho Patient is stable at medical standpoint for discharge with a close follow up with orthopedic surgeon as outpatient Problems: Subjective 24 Hr Interval Summary Free Text/Dictation Patient denies of any chest pain or shortness of breath Denies of any calf pain Ambulating with minimal assist Exam/Review of Systems Vital Signs Vitals Vital Signs Date Time Temp Pulse Resp B/P Pulse Ox O2 Delivery O2 Flow Rate FiO2 04/05/16 08:39 97.8 67 19 125/77 98 04/04/16 00:19 Room Air Intake and Output 04/04/16 04/04/16 04/05/16 15:00 23:00 07:00 Intake Total 1770 ml 650 ml Output Total 2075 ml 2250 ml Balance -305 ml -1600 ml Exam General: The patient is well-developed, Not in acute distress. HEENT: Atraumatic, normocephalic. The pupils are equal and round . Neck: Supple with full range of motion. Chest: Normal expansion of the thorax during inspiration Lungs: Clear to auscultation bilaterally Heart: Normal S1-S2, Regular rhythm and rate. Abdomen: Soft , nontender, nondistended , bowel sounds are present. Extremities: Normal to inspection, no edema no cyanosis, surgical site is dry and clean Neurologic: Normal mental status,The patient is awake, alert and oriented . Results Result Diagram: 04/05/16 0439 04/05/16 0439 Results 24 hrs Laboratory Tests Test 04/05/16 04:39 Anion Gap 12 Blood Urea Nitrogen 10 Calcium Level 8.9 Carbon Dioxide Level 29 Chloride Level 103 Creatinine 0.83 Ferritin 108.0 Folate Glucose Level 92 Hematocrit 28.1 L Hemoglobin 9.9 L Iron Level 27 L Percent Iron Saturation 10 L Potassium Level 4.3 Sodium Level 140 Total Iron Binding Capacity 276 Vitamin B12 Level 419 Medications Medications Current Medications Miscellaneous Information 1 ea NOTE XX Last administered on 04/02/16 17:43; Admin Dose 1 EA; Start 04/02/16 at 07:00; Stop 04/06/16 at 06:59 Lisinopril 5 mg 5 mg DAILY PO Last administered on 04/05/16 08:26; Admin Dose 5 MG; Start 04/03/16 at 09:00 Lactated Ringer's (Lr) 1,000 ml @ 125 mls/hr Q8H IV Last administered on 20:24; Admin Dose 125 MLS/HR; Start 04/02/16 at 19:48 Tramadol HCl (Ultram) 50 mg Q6 PO Last administered on 04/05/16 05:43; Admin Dose 50 MG; Start 04/02/16 at 20:00; Stop 04/05/16 at 19:59 Oxycodone HCl (Roxicodone) 5 mg Q4H PRN PO PAIN LEVEL 1-3 Last administered on 04/05/16 08:27; Admin Dose 5 MG; Start 04/02/16 at 20:00 Oxycodone HCl (Roxicodone) 10 mg Q4H PRN PO PAIN LEVEL 4-7; Start 04/02/16 at 20:00 Hydromorphone HCl 1 mg 1 mg Q3H PRN IV PAIN LEVEL 8-10; Start 04/02/16 at 20:00 Vancomycin HCl (Vancocin) 250 ml @ 125 mls/hr Q12H IVPB Last administered on 00:45; Admin Dose 125 MLS/HR; Start 04/03/16 at 01:00; Stop 04/05/16 at 14:59 Ondansetron HCl (Zofran Inj) 4 mg Q6H PRN IV NAUSEA AND/OR VOMITING; Start 01/07 at 20:00 Bisacodyl (Dulcolax Supp) 10 mg Q12H PRN [place] CONSTIPATION; Start 04/02/16 at 20: 00 Magnesium Hydroxide (Milk Of Mag) 30 ml BID PRN PO CONSTIPATION Last administered on 04/05/16 05:46; Admin Dose 30 ML; Start 04/02/16 at 20:00 Sodium Biphosphate/ Sodium Phosphate (Fleet Enema) 133 ml DAILY PRN [place] CONSTIPATION; Start 04/02/16 at 20:00 Docusate Sodium (Colace) 100 mg BID PO Last administered on 04/05/16 08:26; Admin Dose 100 MG; Start 04/02/16 at 21:00 Diphenhydramine HCl (Benadryl) 25 mg Q6H PRN PO PRURITUS; Start 04/02/16 at 20: 00 Aspirin (Ecotrin) 325 mg BID PO Last administered on 04/05/16 08:26; Admin Dose 325 MG; Start 04/03/16 at 09:00 Pantoprazole (Protonix Tab) 40 mg BID@,18 PO Last administered on 04/05/16 05:43; Admin Dose 40 MG; Start 04/03/16 at 06:00 Pregabalin (Lyrica) 50 mg BID PO Last administered on 04/05/16 08:27; Admin Dose 50 MG; Start 04/02/16 at 21:00 Hydralazine HCl (Apresoline) 10 mg Q6H PRN IV sbp > 160; Start 04/02/16 at 20: 30 Thiamine HCl (Vitamin B1) 100 mg DAILY PO Last administered on 04/05/16 08:26 ; Admin Dose 100 MG; Start 04/03/16 at 09:00 Folic Acid (Folic Acid) 1 mg DAILY PO Last administered on 04/05/16 08:26; Admin Dose 1 MG; Start 04/03/16 at 09:00 Multivitamins Therapeutic (Theragran) 1 tab DAILY PO Last administered on 08:26; Admin Dose 1 TAB; Start 04/03/16 at 09:00 GOI JOSÉ MD Apr 05, 2016 10:02
[2016-04-05] MEDS ORDERED: FERROUS SULFATE (EC) 325 MG TAB PO SCH (11:00)
--- NOTE | 2016-04-06 05:44 | DS ---
DATE OF ADMISSION: 04/02/2016 DATE OF DISCHARGE: 04/05/2016 CONDITION UPON DISCHARGE: Stable. ADMITTING DIAGNOSIS: Painful left total knee arthroplasty. DISCHARGE DIAGNOSIS: Status post revision left knee total arthroplasty. PROCEDURE PERFORMED: Revision left total knee arthroplasty. HOSPITAL COURSE: This is a 55-year-old male who was initially seen in the clinic complaining of lef t knee pain. He had undergone a left TKA with Dr. Clay, however, developed persistent pain and st iffness postoperatively. Risks and benefits of revision surgery were discussed with the patient at length who elected to proceed with a revision left total knee arthroplasty. On 04/02/2016, the jerel ent was admitted and taken to the operating room where he underwent a revision left total knee arthr oplasty. There were no intraoperative complications. The patient tolerated the procedure well. He was taken to the recovery room in stable condition. Pain was well controlled with oral pain medica tion. He was started on aspirin and SCDs for DVT prophylaxis. He remained hemodynamically stable a nd neurovascularly intact throughout his hospital stay. On postoperative day zero, he began physical therapy and continued to make good progress. On postop erative day #3, the patient was evaluated and deemed to be a good candidate for acute rehabilitation unit at [facility]. He was discharged on postop day 3. Prior to being discharge d, the incision was inspected and noted to be clean, dry and intact. Dressing changes were done ambrocio or to patient going to the acute rehabilitation unit. LABORATORY DATA: Laboratory analysis upon discharge: hemoglobin 9.9, hematocrit 28.1. Chemistry hoffmann el was within normal limits. DISCHARGE MEDICATIONS 1. Aspirin 325 mg b.i.d. 2. Tramadol 50 mg. 3. [place] 7.5/325 mg. 4. Protonix 40 mg. 5. Lyrica 50 mg. In addition, the patient is to resume all of his normal home medications. DISCHARGE INSTRUCTIONS: The patient was transferred to acute rehabilitation unit in stable conditio n. He is to resume a normal diet. ACTIVITY: Include weightbearing as tolerated on the surgical lower extremity. Additionally, he is to resume all of his normal home medication. He is to call the office or return to the emergency ro om for any concerns including increased redness, swelling, drainage, fever or any concerns regarding the operation or site of incision. FOLLOWUP: The patient is to follow up with Dr. Clay in the office on 04/12/2016. Dictated By: RYLEY WILKINS for RADHA MACHADO/LINSDEY Conf#: [id number] DID#: [id number]
== END 2016-04-05 13:35 | DRG 468 ==
LOC: REC 10:27 → MS1 20:40
PROVIDERS: ADMIT Orthopaedic Surgery; ATTEND Orthopaedic Surgery
PROC: 0SPW0JZ Removal of Synthetic Substitute from Left Knee Joint, Tibial Surface, Open Approach (ICD-10-PCS; 2016-04-02)
PROC: 0SRU0J9 Replacement of Left Knee Joint, Femoral Surface with Synthetic Substitute, Cemented, Open Approach (ICD-10-PCS; 2016-04-02)
PROC: 0SRW0J9 Replacement of Left Knee Joint, Tibial Surface with Synthetic Substitute, Cemented, Open Approach (ICD-10-PCS; 2016-04-02)
PROC: 0SPD09Z Removal of Liner from Left Knee Joint, Open Approach (ICD-10-PCS; 2016-04-02)
PROC: 0SUW09Z Supplement Left Knee Joint, Tibial Surface with Liner, Open Approach (ICD-10-PCS; 2016-04-02)
PROC: 0SPU0JZ Removal of Synthetic Substitute from Left Knee Joint, Femoral Surface, Open Approach (ICD-10-PCS; principal; 2016-04-02 13:30)
DX: T84.093A Other mechanical complication of internal left knee prosthesis, initial encounter (principal); I10 Essential (primary) hypertension; F10.10 Alcohol abuse, uncomplicated; D64.9 Anemia, unspecified; Y83.8 Other surgical procedures as the cause of abnormal reaction of the patient, or of later complication, without mention of misadventure at the time of the procedure; Y92.89 Other specified places as the place of occurrence of the external cause
CPT/HCPCS: 73560; 73562; 80048; 81001; 81003; 82607; 82728; 82746; 83540; 85014; 85018; 86850; 86900; 86901; 86920; 87070; 87075; 87081; 87086; 88300; 90686; 97110; 97116; 97162; 97165; 97530; C1776; C1713; C9290; J0131; J0171; J0330; J0690; J0735; J1100; J1885; J2274; J2405; J2710; J3370; J7120

== ENCOUNTER 2016-04-05 11:45 | Inpatient (IN) | payer OTHER ==
[~2016-04-05] VITALS: Ht 172.7 cm; Wt 93.6 kg
[~2016-04-05 11:45] MED LIST changes: -ASPI-781 PO; +ASPI325T32 PO; -BUPIVACAINE LIPOSOME/PF 266 MG/20 ML VIAL INFIL SCH; -CEFAZOLIN 1 GM INJ ONE; -CELECOXIB 400 MG PO X1 DOSE PO SCH; -DEXAMETHASONE 4 MG/ML 1 ML INJ ONE; -EXPAREL NOTE (BUPIVICAINE LIPOSOMAL) XX SCH; -GLYCOPYRROLATE 1 MG INJ ONE; +HYDR-905 PO; -IBUP-1542 PO; -LACTATED RINGER'S 1,000 ML IV SCH; +LYRI25 PO; -PAIN COCKTAIL - VANCOMYCIN IRR SCH; +PANT40TA4 PO; -PREGABALIN 300 MG PO X1 PO SCH; -PROPOFOL 1000 MG INJ ONE; -SOD CHLORIDE 0.9% IV SCH; -SOD CHLORIDE 0.9% IVPB SCH; -SUCCINYLCHOLINE CHLORIDE 100 MG/5 ML SYG IV ONE; -TRANEXAMIC ACID IV SCH; -TRANEXAMIC ACID IVPB SCH; -VANCOMYCIN 1 GM/NS 250 ML X1 BEFORE INCISION IVPB SCH; -oxyCODONE (CR) 10 MG TAB [oxyCONTIN] X1 DOSE PO SCH; -traMADOL 50 MG TAB X 1 DOSE PO SCH
[2016-04-05] MEDS ORDERED: NA PHOSPHATE/BIPHOS 133 ML ENEMA PR PRN (14:47)
[2016-04-05] MEDS ORDERED: MAGNESIUM HYDROXIDE 30ML CUP PO PRN (14:47)
[2016-04-05] MEDS ORDERED: BISACODYL 10 MG SUPP PR PRN (14:47)
[2016-04-05] MEDS ORDERED: traMADol 50 MG TAB PO SCH (14:47)
[2016-04-05] MEDS ORDERED: DIPHENHYDRAMINE 25 MG CAP PO PRN (14:48)
[2016-04-05 14:52] VITALS: BP 122/77; PULSE 82; RESP 18
[2016-04-05 15:00] LABS: ADD UMIC NO; URINE BILIRUBIN (Dip) NEGATIVE (NEGATIVE); URINE BLOOD (Dip) NEGATIVE (NEGATIVE); URINE COLOR LT. YELLOW (YELLOW); URINE GLUCOSE (Dip) NEGATIVE (NEGATIVE); URINE KETONES (Dip) NEGATIVE (NEGATIVE); URINE LEUKOCYTE ESTERASE (Dip) NEGATIVE (NEGATIVE); URINE NITRITE (Dip) NEGATIVE (NEGATIVE); URINE TOTAL PROTEIN (Dip) NEGATIVE (NEGATIVE); URINE UROBILINOGEN (Dip) 0.2 E.U./dL (0.1-1.0)
[2016-04-05] MEDS ORDERED: LACTULOSE 30ML CUP PO PRN (16:30)
[2016-04-05] MEDS: PANTOPRAZOLE (EC) 40 MG TAB PO SCH (17:24)
[2016-04-05 19:30] VITALS: BP 112/66; PULSE 75; RESP 18
[2016-04-05] MEDS: PREGABALIN 25 MG CAP PO SCH (20:29)
[2016-04-05] MEDS: ASPIRIN (EC) 325 MG TAB PO SCH (20:29)
[2016-04-05] MEDS: DOCUSATE SODIUM 100 MG CAP PO SCH (20:31)
[2016-04-06] MEDS: PANTOPRAZOLE (EC) 40 MG TAB PO SCH ×2 (06:13→17:27)
[2016-04-06 07:45] VITALS: BP 125/79; RESP 18
[2016-04-06 08:00] VITALS: BP 125/79; PULSE 79; RESP 18
[2016-04-06 08:51] LABS: BASOPHILS % 0.5 % (0.0-2.0); EOSINOPHILS # 0.2 10^3/ul (0.0-0.5); EOSINOPHILS % 3.2 % (0.0-7.0); HEMATOCRIT 30.6 % (42.0-52.0); HEMOGLOBIN 10.9 g/dl (14.0-18.0); LYMPHOCYTES # 1.4 10^3/ul (0.8-2.9); LYMPHOCYTES % 19.1 % (15.0-51.0); MEAN CORPUSCULAR HEMOGLOBIN 32.3 pg (29.0-33.0); MEAN CORPUSCULAR HGB CONC 35.6 g/dl (32.0-37.0); MEAN CORPUSCULAR VOLUME 90.7 fl (82.0-101.0); MEAN PLATELET VOLUME 9.2 fl (7.4-10.4); MONOCYTE # 0.8 10^3/ul (0.3-0.9); NEUTROPHILS % 66.2 % (39.0-77.0); PLATELET COUNT 137 10^3/UL (140-440); RED BLOOD COUNT 3.37 10^6/ul (4.70-6.10); RED CELL DISTRIBUTION WIDTH 14.5 % (11.5-14.5); UNCORRECTED WBC 7.5 10^3/ul (4.8-10.8); WHITE BLOOD COUNT 7.5 10^3/ul (4.8-10.8)
[2016-04-06 08:56] LABS: ALBUMIN 3.4 g/dl (3.3-4.9)
[2016-04-06 08:57] LABS: POTASSIUM 4.9 mmol/L (3.5-5.1)
[2016-04-06 08:59] LABS: BILIRUBIN,INDIRECT 0.6 mg/dl (0-1.1); BILIRUBIN,TOTAL 0.6 mg/dl (0.2-1.3); CALCIUM 9.5 mg/dl (8.4-10.2); CREATININE 0.89 mg/dl (0.61-1.24); TOTAL PROTEIN 6.8 g/dl (6.1-8.1)
[2016-04-06] MEDS: PREGABALIN 25 MG CAP PO SCH ×2 (09:08→20:16)
[2016-04-06] MEDS: DOCUSATE SODIUM 100 MG CAP PO SCH ×2 (09:09→20:16)
[2016-04-06] MEDS: ASPIRIN (EC) 325 MG TAB PO SCH ×2 (09:09→20:16)
[2016-04-06] MEDS: MULTIVITAMINS THERAPEUTIC TAB PO SCH (09:09)
[2016-04-06] MEDS: FERROUS SULFATE (EC) 325 MG TAB PO SCH (09:09)
[2016-04-06] MEDS: LISINOPRIL 5 MG TAB PO SCH (09:09)
[2016-04-06] MEDS: FOLIC ACID 1 MG TAB PO SCH (09:09)
[2016-04-06] MEDS: SENNA TAB PO SCH (09:10)
[2016-04-06 09:29] LABS: CONDITION 1
--- NOTE | 2016-04-06 10:26 | CONS ---
DATE OF ADMISSION: 04/05/2016 DATE OF CONSULTATION: 04/06/2016 REHABILITATION POST ADMISSION PHYSICIAN EVALUATION REHABILITATION IMPAIRMENT CATEGORY: Other orthopedic injury, with left total knee revision. ACTIVE COMORBIDITIES: 1. Acute pain syndrome. 2. Hypertension. 3. History of ETOH abuse. 4. Impairments in self-care and mobility. 5. Degenerative joint disease, with notable pain in the right shoulder. HISTORY OF PRESENT ILLNESS: The patient is a 55-year-old gentleman with a history of degenerative jacque int disease, previous left total knee replacement, essential hypertension and ETOH abuse, who was no raegan to have increasing pain and worsening mobility in the left knee. The patient was noted to have mechanical complications in the left total knee and did undergo a left total knee revision on 2016. The patient's hospital course has been notable for significant pain, in addition to impairmen ts in self-care and mobility as compared to baseline. The patient has been cleared to transfer to [facility] for comprehensive interdisciplinary rehab care. FUNCTIONAL HISTORY: Prior to recent events, he was independent in self-care tasks and mobility. Cu rrently he requires minimal assist for self-care and mobility tasks. SOCIAL HISTORY: The patient lives at home and hopes to return there upon discharge. PAST MEDICAL HISTORY: 1. Hypertension. 2. Degenerative joint disease, with notable pain in the right shoulder. 3. History of left total knee replacement. 4. History of alcohol abuse. CURRENT MEDICATIONS: 1. Ecotrin 325 p.o. b.i.d. 2. Colace 100 mg b.i.d. 3. Folic acid 1 mg p.o. daily. 4. Zestril 5 mg p.o. daily. 5. Multivitamin 1 tab p.o. daily. 6. Oxycodone 5 mg p.o. q.4h. p.r.n. 7. Protonix 40 mg b.i.d. 8. Lyrica 50 mg b.i.d. 9. Ultram 50 mg q.6h. ALLERGIES: PATIENT WITH NO KNOWN DRUG ALLERGIES. PHYSICAL EXAMINATION: VITAL SIGNS: The patient is currently afebrile, with stable vital signs. HEENT: Extraocular motions are intact. Oropharynx is clear. NECK: Supple. LUNGS: Clear anteriorly. CARDIAC: S1, S2. ABDOMEN: Soft, nontender. Positive bowel sounds. NEUROLOGIC: He is awake, alert and oriented x3, can follow simple 1-step commands. He demonstrates good strength in the bilateral upper extremities and lower extremities. He has dorsiflexion and pl j carlos flexion intact on the left. PLAN: The patient has been admitted for comprehensive interdisciplinary acute rehab and is anticipa raegan to tolerate 3 hours of daily therapy in divided doses for at least 5/7 days a week. The treatme nt plan will include: 1. Physical therapy to focus on bed mobility, transfers, and household ambulation, with the goal of having the patient reach a standby assist level. 2. Occupational therapy to focus on hygiene, grooming, dressing, bathing, and toileting activities, with the goal of having the patient reach a standby assist level. 3. Rehabilitation nursing for carryover of therapeutic interventions, with the goal of continent of bowel and bladder, and the goal of pain adequately managed on oral medications. ESTIMATED LENGTH OF STAY: 10 days. DISPOSITION GOAL: Home. I acknowledge that I have performed a full physical examination on this patient within 24 hours of a dmission to the rehabilitation unit and believe the patient is a good candidate for comprehensive in terdisciplinary rehab care and is anticipated to make reasonable goals in a reasonable period of rajni e, as outlined above. REHABILITATION BARRIER: Pain. INTERVENTION FOR BARRIER: Comprehensive interdisciplinary approach. Dictated By: WILLIAM PARHAM/LINDSEY Conf#: [id number] DID#: [id number]
--- NOTE | 2016-04-06 12:09 | PN ---
Date/Time of Note Date/Time of Note DATE: 04/06/16 TIME: 12:07 Assessment/Plan Lines/Catheters IV Catheter Type (from Nrsg): Saline Lock Shoemaker in Place (from Nrsg): No Assessment/Plan Assessment/Plan POD # 4. Stable. -Continue PT for gait training and ROM exercises -OOB with PT -Pain meds -E.C. ASA 325 mg po bid plus bilateral LE SCDs -Encourage IS 10x/hr and OOB to chair several times per day Subjective 24 Hr Interval Summary Patient now in [facility] ARU. Doing well. Pain well controlled. Walked with PT yesterday. Exam/Review of Systems Vital Signs Vitals Vital Signs Date Time Temp Pulse Resp B/P Pulse Ox O2 Delivery O2 Flow Rate FiO2 04/06/16 08:00 98.3 79 18 125/79 97 Room Air Intake and Output 04/05/16 04/05/16 04/06/16 15:00 23:00 07:00 Intake Total 240 ml 240 ml 1750 ml Output Total 500 ml 900 ml 703 ml Balance -260 ml -660 ml 1047 ml Exam Free Text/Dictation Dressing dry Incision clean, dry, and intact without redness or drainage 5/5 Tibialis Anterior, EHL, Gastroc Soleus, Peroneals Normal sensation Palpable DP/PT, CR < 2 Sec No distal edema Results Result Diagram: 04/06/16 0800 04/06/16 0800 RADHA NIXNO MD Apr 06, 2016 12:09
[2016-04-06] MEDS: oxyCODONE 5 MG TAB PO PRN ×2 (13:03→23:10)
--- NOTE | 2016-04-06 16:26 | CONS ---
DATE OF ADMISSION: 04/05/2016 DATE OF CONSULTATION: 04/06/2016 REASON FOR CONSULTATION: Medical management during the course of acute rehabilitation. OTHER AUTO TECH: Dr. Kedar Clay. HISTORY OF PRESENT ILLNESS: This is a very pleasant 55-year-old gentleman with past medical history of essential hypertension, anemia, alcohol abuse in remission, who recently was admitted to [facility] on 04/02/[address] Kedar Clay for mechanical complication of the left total knee arthroplasty and patient had revision of left total knee arthroplasty by Dr. Kedar Clay. The patient tolerated the procedure well and was taken to recovery room and was observed from 7 to 04/05/2016 by medical team and Dr. Kedar Clay. The patient obtained physical therapy and afte r evaluation by physical therapy, it was decided the patient will benefit from acute rehabilitation services. Therefore, the patient has been transferred to acute rehab at [facility] for further evaluation. At this time, patient denies any headache, dizziness, lightheadedness. N o chest pain, palpitation, edema, orthopnea. No change in visual acuity, diplopia, photophobia. No abdominal pain, no nausea, vomiting, diarrhea, no calf pain. Minimal left knee pain during ambulat ion and physical therapy. Otherwise, no other discomfort. PAST MEDICAL AND SURGICAL HISTORY: As above per HPI. MEDICATIONS: 1. Ferrous sulfate. 2. Lisinopril. 3. Oxycodone. 4. Dulcolax. 5. Milk of magnesia. 6. Fleet enema. 7. Colace. 8. Aspirin. 9. Protonix. 10. Lyrica. 11. Folic acid. 12. Multivitamin. 13. Benadryl. 14. Lactulose. 15. ALLERGIES: NO KNOWN DRUG ALLERGIES. FAMILY HISTORY: Noncontributory. SOCIAL HISTORY: Positive for smoking, has a history of alcohol abuse which is in remission. No ill icit drugs. REVIEW OF SYSTEMS: As above per HPI, otherwise 12-point review of systems has been found to be nega tive. PHYSICAL EXAMINATION: VITAL SIGNS: Temperature 98.3, pulse 79, respiration 18, blood pressure 124/79, oxygen 97% room air . GENERAL APPEARANCE: The patient is lying in bed comfortably without any distress. He is awake, domingo rt, oriented. He is able to answer my questions properly. EYES AND ENT: Conjunctivae and lids are normal. Pupils are normal. Extraocular normal. Hearing g rossly normal. Lips are normal. Oral mucosa is moist. NECK: Supple. Trachea is midline. No lymphadenopathy. RESPIRATORY: Effort is normal. Clear to auscultate bilaterally. CARDIOVASCULAR: Normal S1, S2. Regular rhythm and rate. No murmur, no bruits, no edema. Peripher al pulses palpable. Cap refill is normal. CHEST: Normal expansion of thorax during inspiration. GASTROINTESTINAL: Abdomen is soft, nontender, not distended. Bowel sounds present. No guarding, n o rebound. GENITOURINARY: Deferred. MUSCULOSKELETAL: Upper extremity within normal limits. Right lower extremity within normal limits. Left lower extremity is status post left knee arthroplasty. The surgical site is dry and clean. No evidence of hematoma. No evidence of bleeding. It is in dry dressing with full range of motion in the ankle and foot. NEUROLOGIC: Cranial nerves II through XII are grossly intact. PSYCHIATRIC: Normal judgment and insight. Alert and oriented x3. Mood and affect is normal. LABORATORY WORK: WBC 7.5, hemoglobin 10.9, hematocrit 30.6, platelets 137. Sodium 138, potassium 4 .9, chloride 99, bicarbonate 32, BUN 12, creatinine 0.89, glucose 117, calcium 9.5. LFTs all within normal limits except AST 72. Vitamin B12 419. Folic acid 14.5. ASSESSMENT AND PLAN: 1. 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 The patient has been transferred to acute rehab for further evaluation and physical therapy. Continue physical therapy as per acute rehabilitation physician recommendations. Continue pain medication. 2. Acute anemia is likely secondary to postoperative versus alcohol related. Continue ferrous sulf ate. 3. History of alcohol abuse in remission. Continue multivitamin, folic acid and thiamine. 4. For deep venous thrombosis prophylaxis, on aspirin. 5. For gastrointestinal prophylaxis, on proton pump inhibitor. 6. We will continue to monitor patient closely. Further recommendations, management and treatment as per clinical course. Total time spent for evaluation of patient and consultation note was 40 minutes. Dictated By: GIO VENEGAS/LINDSEY Conf#: [id number] [facility]#: [id number]
[2016-04-06 19:28] VITALS: BP 127/70; RESP 19
[2016-04-07] MEDS: PANTOPRAZOLE (EC) 40 MG TAB PO SCH ×2 (06:53→17:19)
[2016-04-07 07:30] VITALS: BP 115/73; RESP 18
[2016-04-07] MEDS: DOCUSATE SODIUM 100 MG CAP PO SCH ×2 (08:23→20:26)
[2016-04-07] MEDS: SENNA TAB PO SCH (08:23)
[2016-04-07] MEDS: FOLIC ACID 1 MG TAB PO SCH (08:23)
[2016-04-07] MEDS: FERROUS SULFATE (EC) 325 MG TAB PO SCH (08:23)
[2016-04-07] MEDS: PREGABALIN 25 MG CAP PO SCH ×2 (08:23→20:26)
[2016-04-07] MEDS: ASPIRIN (EC) 325 MG TAB PO SCH ×2 (08:23→20:26)
[2016-04-07] MEDS: MULTIVITAMINS THERAPEUTIC TAB PO SCH (08:23)
[2016-04-07] MEDS: oxyCODONE 5 MG TAB PO PRN ×3 (08:24→23:34)
[2016-04-07] MEDS: LISINOPRIL 5 MG TAB PO SCH (09:00)
--- NOTE | 2016-04-07 12:30 | PN ---
Date/Time of Note Date/Time of Note DATE: 04/07/16 TIME: 12:26 Assessment/Plan VTE Prophylaxis VTE Prophylaxis Intervention: SCD's Lines/Catheters [facility] Saline Lock Urinary Cath still in place: No Assessment/Plan Chief Complaint/Hosp Course ASSESSMENT AND PLAN: 1. 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 The patient has been transferred to acute rehab for further evaluation and physical therapy. Continue physical therapy as per acute rehabilitation physician recommendations. Continue pain medication. 2. Acute anemia is likely secondary to postoperative versus alcohol related. Continue ferrous sulfate. 3. History of alcohol abuse in remission. Continue multivitamin, folic acid and thiamine. 4. For deep venous thrombosis prophylaxis, on aspirin. 5. For gastrointestinal prophylaxis, on proton pump inhibitor. We will continue to monitor patient closely. Further recommendations, management and treatment as per clinical course. Problems: Subjective 24 Hr Interval Summary Free Text/Dictation No acute changes denies of any chest pain shortness of breath Ambulating with minimal difficulty and minimal assist Exam/Review of Systems Vital Signs Vitals Vital Signs Date Time Temp Pulse Resp B/P Pulse Ox O2 Delivery O2 Flow Rate FiO2 04/07/16 07:30 98.2 74 18 115/73 98 04/06/16 08:00 Room Air Intake and Output 04/06/16 04/06/16 04/07/16 14:59 22:59 06:59 Intake Total 1330 ml 1240 ml 850 ml Output Total 1900 ml 1100 ml 2100 ml Balance -570 ml 140 ml -1250 ml Exam General: The patient is well-developed, Not in acute distress. HEENT: Atraumatic, normocephalic. The pupils are equal and round . Neck: Supple with full range of motion. Chest: Normal expansion of the thorax during inspiration Lungs: Clear to auscultation bilaterally Heart: Normal S1-S2, Regular rhythm and rate. Abdomen: Soft , nontender, nondistended , bowel sounds are present. Extremities: Normal to inspection, no edema no cyanosis Neurologic: Normal mental status,The patient is awake, alert and oriented . Results Result Diagram: 04/06/16 0800 04/06/16 0800 Medications Medications Current Medications Ferrous Sulfate (Ferrous Sulfate (Ec)) 325 mg DAILY PO Last administered on t 08:23; Admin Dose 325 MG; Start 04/06/16 at 09:00 Lisinopril (Zestril) 5 mg DAILY PO Last administered on 04/06/16 09:09; Admin Dose 5 MG; Start 04/05/16 at 14:47 Oxycodone HCl (Roxicodone) 5 mg Q4H PRN PO PAIN LEVEL 1-3 Last administered on 04/07/16 08:24; Admin Dose 5 MG; Start 04/05/16 at 14:47 Oxycodone HCl (Roxicodone) 10 mg Q4H PRN PO PAIN LEVEL 4-7 Last administered on 04/06/16 13:03; Admin Dose 10 MG; Start 04/05/16 at 14:47 Bisacodyl (Dulcolax Supp) 10 mg Q12H PRN [place] CONSTIPATION; Start 04/05/16 at 14: 47 Magnesium Hydroxide (Milk Of Mag) 30 ml BID PRN PO CONSTIPATION; Start at 14:47 Sodium Biphosphate/ Sodium Phosphate (Fleet Enema) 133 ml DAILY PRN [place] CONSTIPATION; Start 04/05/16 at 14:47 Docusate Sodium (Colace) 100 mg BID PO Last administered on 04/07/16 08:23; Admin Dose 100 MG; Start 04/05/16 at 14:47 Aspirin (Ecotrin) 325 mg BID PO Last administered on 04/07/16 08:23; Admin Dose 325 MG; Start 04/05/16 at 14:47 Pantoprazole (Protonix Tab) 40 mg BID@06,18 PO Last administered on 04/07/16 06:53; Admin Dose 40 MG; Start 04/05/16 at 14:47 Pregabalin (Lyrica) 50 mg BID PO Last administered on 04/07/16 08:23; Admin Dose 50 MG; Start 04/05/16 at 14:47 Folic Acid (Folic Acid) 1 mg DAILY PO Last administered on 04/07/16 08:23; Admin Dose 1 MG; Start 04/05/16 at 14:47 Multivitamins Therapeutic (Theragran) 1 tab DAILY PO Last administered on 08:23; Admin Dose 1 TAB; Start 04/05/16 at 14:47 Diphenhydramine HCl (Benadryl) 25 mg Q6H PRN PO PRURITUS; Start 04/05/16 at 14: 48 Lactulose (Enulose) 20 gm DAILY PRN PO CONSTIPATION; Start 04/05/16 at 16:30 Senna (Senokot) 2 tab DAILY PO Last administered on 04/07/16t 08:23; Admin Dose 2 TAB; Start 04/06/16 at 09:00 GIO JOSÉ MD Apr 07, 2016 12:30
[2016-04-07 19:00] VITALS: BP 120/73; RESP 16
[2016-04-08] MEDS: PANTOPRAZOLE (EC) 40 MG TAB PO SCH ×2 (05:16→18:35)
[2016-04-08] MEDS: oxyCODONE 5 MG TAB PO PRN ×4 (05:17→23:38)
[2016-04-08 07:30] VITALS: BP 115/74; RESP 18
[2016-04-08 08:00] VITALS: BP 115/64; PULSE 73; RESP 18
[2016-04-08] MEDS: FERROUS SULFATE (EC) 325 MG TAB PO SCH (08:51)
[2016-04-08] MEDS: FOLIC ACID 1 MG TAB PO SCH (08:51)
[2016-04-08] MEDS: MULTIVITAMINS THERAPEUTIC TAB PO SCH (08:51)
[2016-04-08] MEDS: ASPIRIN (EC) 325 MG TAB PO SCH ×2 (08:51→20:12)
[2016-04-08] MEDS: DOCUSATE SODIUM 100 MG CAP PO SCH ×2 (08:51→20:12)
[2016-04-08] MEDS: SENNA TAB PO SCH (08:51)
[2016-04-08] MEDS: PREGABALIN 25 MG CAP PO SCH ×2 (08:52→20:12)
[2016-04-08] MEDS: LISINOPRIL 5 MG TAB PO SCH (08:56)
--- NOTE | 2016-04-08 12:21 | CONS ---
Date/Time of Note Date/Time of Note DATE: 04/08/16 TIME: 12:20 Consult Date/Type/Reason Admit Date/Time Apr 05, 2016 at 13:42 Initial Consult Date Subjective Pain under better control Objective Vital Signs Date Time Temp Pulse Resp B/P Pulse Ox O2 Delivery O2 Flow Rate FiO2 04/08/16 08:00 97.7 73 18 115/64 97 Room Air Intake and Output 04/07/16 04/07/16 04/08/16 14:59 22:59 06:59 Intake Total 1200 ml 600 ml Output Total 740 ml Balance 1200 ml -140 ml INTERDISCIPLINARY TEAM CONFERENCE BOWEL- Cont BLADDER-Cont SKIN- incision clean/dry OT- DRESSING-min BATHING-min/mod TOILETING-min PT- BED MOBILITY-min TRANSFERS-min AMBULATION-min 50 feet A/P- Interdisciplinary team conference held today. Please see interdisciplinary sheet. Working toward d.c. on 04/12 with post discharge follow up of physical therapy, occupational therapy. Results/Medications Result Diagram: 04/06/16 0800 04/06/16 0800 Medications Current Medications Ferrous Sulfate (Ferrous Sulfate (Ec)) 325 mg DAILY PO Last administered on 08:51; Admin Dose 325 MG; Start 04/06/16 at 09:00 Lisinopril (Zestril) 5 mg DAILY PO Last administered on 04/08/16 08:56; Admin Dose 5 MG; Start 04/05/16 at 14:47 Oxycodone HCl (Roxicodone) 5 mg Q4H PRN PO PAIN LEVEL 1-3 Last administered on 04/07/16 23:34; Admin Dose 5 MG; Start 04/05/16 at 14:47 Oxycodone HCl (Roxicodone) 10 mg Q4H PRN PO PAIN LEVEL 4-7 Last administered on 04/08/16 11:16; Admin Dose 10 MG; Start 04/05/16 at 14:47 Bisacodyl (Dulcolax Supp) 10 mg Q12H PRN [place] CONSTIPATION; Start 04/05/16 at 14: 47 Magnesium Hydroxide (Milk Of Mag) 30 ml BID PRN PO CONSTIPATION; Start at 14:47 Sodium Biphosphate/ Sodium Phosphate (Fleet Enema) 133 ml DAILY PRN [place] CONSTIPATION; Start 04/05/16 at 14:47 Docusate Sodium (Colace) 100 mg BID PO Last administered on 04/08/16 08:51; Admin Dose 100 MG; Start 04/05/16 at 14:47 Aspirin (Ecotrin) 325 mg BID PO Last administered on 04/08/16 08:51; Admin Dose 325 MG; Start 04/05/16 at 14:47 Pantoprazole (Protonix Tab) 40 mg BID@06,18 PO Last administered on 04/08/16 05:16; Admin Dose 40 MG; Start 04/05/16 at 14:47 Pregabalin (Lyrica) 50 mg BID PO Last administered on 04/08/16 08:52; Admin Dose 50 MG; Start 04/05/16 at 14:47 Folic Acid (Folic Acid) 1 mg DAILY PO Last administered on 04/08/16 08:51; Admin Dose 1 MG; Start 04/05/16 at 14:47 Multivitamins Therapeutic (Theragran) 1 tab DAILY PO Last administered on 08:51; Admin Dose 1 TAB; Start 04/05/16 at 14:47 Diphenhydramine HCl (Benadryl) 25 mg Q6H PRN PO PRURITUS; Start 04/05/16 at 14: 48 Lactulose (Enulose) 20 gm DAILY PRN PO CONSTIPATION; Start 04/05/16 at 16:30 Senna (Senokot) 2 tab DAILY PO Last administered on 04/08/16 08:51; Admin Dose 2 TAB; Start 04/06/16 at 09:00 WILLIAM CLEMENTE MD Apr 08, 2016 12:21
--- NOTE | 2016-04-08 13:44 | PN ---
Date/Time of Note Date/Time of Note DATE: 04/08/16 TIME: 13:43 Assessment/Plan VTE Prophylaxis VTE Prophylaxis Intervention: SCD's Lines/Catheters IV [facility] Saline Lock Urinary Cath still in place: No Assessment/Plan Chief Complaint/Hosp Course ASSESSMENT AND PLAN: 1. 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 The patient has been transferred to acute rehab for further evaluation and physical therapy. Continue physical therapy as per acute rehabilitation physician recommendations. Continue pain medication. 2. Acute anemia is likely secondary to postoperative versus alcohol related. Continue ferrous sulfate. 3. History of alcohol abuse in remission. Continue multivitamin, folic acid and thiamine. 4. For deep venous thrombosis prophylaxis, on aspirin. 5. For gastrointestinal prophylaxis, on proton pump inhibitor. We will continue to monitor patient closely. Further recommendations, management and treatment as per clinical course. Problems: Subjective 24 Hr Interval Summary Free Text/Dictation Denies of any chest pain or shortness of breath Ambulating with a walker with minimal assist Tolerating oral intake Exam/Review of Systems Vital Signs Vitals Vital Signs Date Time Temp Pulse Resp B/P Pulse Ox O2 Delivery O2 Flow Rate FiO2 04/08/16 08:00 97.7 73 18 115/64 97 Room Air Intake and Output 04/07/16 04/07/16 04/08/16 15:00 23:00 07:00 Intake Total 1200 ml 600 ml Output Total 740 ml Balance 1200 ml -140 ml Exam General: The patient is well-developed, Not in acute distress. HEENT: Atraumatic, normocephalic. The pupils are equal and round . Neck: Supple with full range of motion. Chest: Normal expansion of the thorax during inspiration Lungs: Clear to auscultation bilaterally Heart: Normal S1-S2, Regular rhythm and rate. Abdomen: Soft , nontender, nondistended , bowel sounds are present. Extremities: Normal to inspection, no edema no cyanosis, surgical site is dry and clean Neurologic: Normal mental status,The patient is awake, alert and oriented . Results Result Diagram: 04/06/16 0800 04/06/16 0800 Medications Medications Current Medications Ferrous Sulfate (Ferrous Sulfate (Ec)) 325 mg DAILY PO Last administered on t 08:51; Admin Dose 325 MG; Start 04/06/16 at 09:00 Lisinopril (Zestril) 5 mg DAILY PO Last administered on 04/08/16 08:56; Admin Dose 5 MG; Start 04/05/16 at 14:47 Oxycodone HCl (Roxicodone) 5 mg Q4H PRN PO PAIN LEVEL 1-3 Last administered on 04/07/16 23:34; Admin Dose 5 MG; Start 04/05/16 at 14:47 Oxycodone HCl (Roxicodone) 10 mg Q4H PRN PO PAIN LEVEL 4-7 Last administered on 04/08/16 11:16; Admin Dose 10 MG; Start 04/05/16 at 14:47 Bisacodyl (Dulcolax Supp) 10 mg Q12H PRN [place] CONSTIPATION; Start 04/05/16 at 14: 47 Magnesium Hydroxide (Milk Of Mag) 30 ml BID PRN PO CONSTIPATION; Start at 14:47 Sodium Biphosphate/ Sodium Phosphate (Fleet Enema) 133 ml DAILY PRN [place] CONSTIPATION; Start 04/05/16 at 14:47 Docusate Sodium (Colace) 100 mg BID PO Last administered on 04/08/16 08:51; Admin Dose 100 MG; Start 04/05/16 at 14:47 Aspirin (Ecotrin) 325 mg BID PO Last administered on 04/08/16 08:51; Admin Dose 325 MG; Start 04/05/16 at 14:47 Pantoprazole (Protonix Tab) 40 mg BID@06,18 PO Last administered on 04/08/16 05:16; Admin Dose 40 MG; Start 04/05/16 at 14:47 Pregabalin (Lyrica) 50 mg BID PO Last administered on 04/08/16 08:52; Admin Dose 50 MG; Start 04/05/16 at 14:47 Folic Acid (Folic Acid) 1 mg DAILY PO Last administered on 04/08/16 08:51; Admin Dose 1 MG; Start 04/05/16 at 14:47 Multivitamins Therapeutic (Theragran) 1 tab DAILY PO Last administered on 08:51; Admin Dose 1 TAB; Start 04/05/16 at 14:47 Diphenhydramine HCl (Benadryl) 25 mg Q6H PRN PO PRURITUS; Start 04/05/16 at 14: 48 Lactulose (Enulose) 20 gm DAILY PRN PO CONSTIPATION; Start 04/05/16 at 16:30 Senna (Senokot) 2 tab DAILY PO Last administered on 04/08/16t 08:51; Admin Dose 2 TAB; Start 04/06/16 at 09:00 GIO JOSÉ MD Apr 08, 2016 13:43
--- NOTE | 2016-04-08 14:39 | PN ---
Date/Time of Note Date/Time of Note DATE: 04/08/16 TIME: 14:37 Assessment/Plan Lines/Catheters IV Catheter Type (from Nrsg): Saline Lock Shoemaker in Place (from Nrsg): No Assessment/Plan Assessment/Plan Stable, s/p revision left TKA -cont PT on ARU -pain meds -dressing change done today -cont ASA 325mg and SCDs for DVT prophylaxis -encourage incentive spirometry Subjective 24 Hr Interval Summary Doing well. Pain and swelling improving overall. Progressing well with PT. Denies f/c. VSS, afebrile. Exam/Review of Systems Vital Signs Vitals Vital Signs Date Time Temp Pulse Resp B/P Pulse Ox O2 Delivery O2 Flow Rate FiO2 04/08/16 08:00 97.7 73 18 115/64 97 Room Air Intake and Output 04/07/16 04/07/16 04/08/16 15:00 23:00 07:00 Intake Total 1200 ml 600 ml Output Total 740 ml Balance 1200 ml -140 ml Exam Free Text/Dictation Dressing dry Incision clean, dry, and intact without redness or drainage Thigh soft 5/5 Quadriceps, Tibialis Anterior, EHL, Gastroc, Soleus, Peroneals Normal sensation Palpable DT/PT, CR <2 sec No distal edema Results Result Diagram: 04/06/16 0800 04/06/16 0800 RYLEY BRIONES PA-C Apr 08, 2016 14:39
[2016-04-08 20:23] VITALS: BP 116/69; RESP 18
[2016-04-09] MEDS: oxyCODONE 5 MG TAB PO PRN ×3 (06:16→19:43)
[2016-04-09] MEDS: PANTOPRAZOLE (EC) 40 MG TAB PO SCH ×2 (06:18→17:40)
[2016-04-09 08:00] VITALS: BP 102/59; PULSE 61; RESP 18
[2016-04-09] MEDS: ASPIRIN (EC) 325 MG TAB PO SCH ×2 (08:59→20:21)
[2016-04-09] MEDS: FOLIC ACID 1 MG TAB PO SCH (08:59)
[2016-04-09] MEDS: DOCUSATE SODIUM 100 MG CAP PO SCH ×2 (08:59→20:21)
[2016-04-09] MEDS: MULTIVITAMINS THERAPEUTIC TAB PO SCH (08:59)
[2016-04-09] MEDS: PREGABALIN 25 MG CAP PO SCH ×2 (08:59→20:21)
[2016-04-09] MEDS: FERROUS SULFATE (EC) 325 MG TAB PO SCH (08:59)
[2016-04-09] MEDS: SENNA TAB PO SCH (08:59)
[2016-04-09 09:01] VITALS: BP 102/57; RESP 18
--- NOTE | 2016-04-09 11:28 | CONS ---
Date/Time of Note Date/Time of Note DATE: 04/09/16 TIME: 11:27 Consult Date/Type/Reason Admit Date/Time Apr 05, 2016 at 13:42 Subjective pain improved Objective min assist ambulation Vital Signs Date Time Temp Pulse Resp B/P Pulse Ox O2 Delivery O2 Flow Rate FiO2 04/09/16 09:01 98.4 67 18 102/57 98 04/08/16 08:00 Room Air Intake and Output 04/08/16 04/08/16 04/09/16 15:00 23:00 07:00 Intake Total 960 ml 700 ml Balance 960 ml 700 ml Results/Medications Result Diagram: 04/06/16 0800 04/06/16 0800 Medications Current Medications Ferrous Sulfate (Ferrous Sulfate (Ec)) 325 mg DAILY PO Last administered on 08:59; Admin Dose 325 MG; Start 04/06/16 at 09:00 Lisinopril (Zestril) 5 mg DAILY PO Last administered on 04/08/16 08:56; Admin Dose 5 MG; Start 04/05/16 at 14:47 Oxycodone HCl (Roxicodone) 5 mg Q4H PRN PO PAIN LEVEL 1-3 Last administered on 04/08/16 23:38; Admin Dose 5 MG; Start 04/05/16 at 14:47 Oxycodone HCl (Roxicodone) 10 mg Q4H PRN PO PAIN LEVEL 4-7 Last administered on 04/09/16 06:16; Admin Dose 10 MG; Start 04/05/16 at 14:47 Bisacodyl (Dulcolax Supp) 10 mg Q12H PRN [place] CONSTIPATION; Start 04/05/16 at 14: 47 Magnesium Hydroxide (Milk Of Mag) 30 ml BID PRN PO CONSTIPATION; Start at 14:47 Sodium Biphosphate/ Sodium Phosphate (Fleet Enema) 133 ml DAILY PRN [place] CONSTIPATION; Start 04/05/16 at 14:47 Docusate Sodium (Colace) 100 mg BID PO Last administered on 04/09/16 08:59; Admin Dose 100 MG; Start 04/05/16 at 14:47 Aspirin (Ecotrin) 325 mg BID PO Last administered on 04/09/16 08:59; Admin Dose 325 MG; Start 04/05/16 at 14:47 Pantoprazole (Protonix Tab) 40 mg BID@06,18 PO Last administered on 04/09/16 06:18; Admin Dose 40 MG; Start 04/05/16 at 14:47 Pregabalin (Lyrica) 50 mg BID PO Last administered on 04/09/16 08:59; Admin Dose 50 MG; Start 04/05/16 at 14:47 Folic Acid (Folic Acid) 1 mg DAILY PO Last administered on 04/09/16 08:59; Admin Dose 1 MG; Start 04/05/16 at 14:47 Multivitamins Therapeutic (Theragran) 1 tab DAILY PO Last administered on 08:59; Admin Dose 1 TAB; Start 04/05/16 at 14:47 Diphenhydramine HCl (Benadryl) 25 mg Q6H PRN PO PRURITUS; Start 04/05/16 at 14: 48 Lactulose (Enulose) 20 gm DAILY PRN PO CONSTIPATION; Start 04/05/16 at 16:30 Senna (Senokot) 2 tab DAILY PO Last administered on 04/09/16 08:59; Admin Dose 2 TAB; Start 04/06/16 at 09:00 Assessment/Plan Additional Assessment/Plan rehab- left total knee revision. Progressing well Acute pain syndrome- improved. Hypertension. History of ETOH abuse. WILLIAM CLEMENTE MD Apr 09, 2016 11:28
[2016-04-09] MEDS: LISINOPRIL 5 MG TAB PO SCH (12:41)
--- NOTE | 2016-04-09 16:07 | PN ---
Date/Time of Note Date/Time of Note DATE: 04/09/16 TIME: 16:07 Assessment/Plan VTE Prophylaxis VTE Prophylaxis Intervention: other Lines/Catheters IV Catheter Type (from [facility]): Saline Lock Urinary Cath still in place: No Assessment/Plan Chief Complaint/Hosp Course ASSESSMENT AND PLAN: 1. 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 The patient has been transferred to acute rehab for further evaluation and physical therapy. Continue physical therapy as per acute rehabilitation physician recommendations. Continue pain medication. 2. Acute anemia is likely secondary to postoperative versus alcohol related. Continue ferrous sulfate. 3. History of alcohol abuse in remission. Continue multivitamin, folic acid and thiamine. 4. For deep venous thrombosis prophylaxis, on aspirin. 5. For gastrointestinal prophylaxis, on proton pump inhibitor. We will continue to monitor patient closely. Further recommendations, management and treatment as per clinical course. Problems: Subjective 24 Hr Interval Summary Free Text/Dictation Patient is able to ambulate with min assist Complains of having minimal pain status post ambulation No nausea vomiting diarrhea No calf pain Exam/Review of Systems Vital Signs Vitals Vital Signs Date Time Temp Pulse Resp B/P Pulse Ox O2 Delivery O2 Flow Rate FiO2 04/09/16 09:01 98.4 67 18 102/57 98 04/09/16 08:00 Room Air Intake and Output 04/08/16 04/08/16 04/09/16 15:00 23:00 07:00 Intake Total 960 ml 700 ml Balance 960 ml 700 ml Exam General: The patient is well-developed, Not in acute distress. HEENT: Atraumatic, normocephalic. The pupils are equal and round . Neck: Supple with full range of motion. Chest: Normal expansion of the thorax during inspiration Lungs: Clear to auscultation bilaterally Heart: Normal S1-S2, Regular rhythm and rate. Abdomen: Soft , nontender, nondistended , bowel sounds are present. Extremities: Left lower extremity and wrap in place and dry dressing, no edema no cyanosis Neurologic: Normal mental status,The patient is awake, alert and oriented . Results Result Diagram: 04/06/16 0800 04/06/16 0800 Medications Medications Current Medications Ferrous Sulfate (Ferrous Sulfate (Ec)) 325 mg DAILY PO Last administered on t 08:59; Admin Dose 325 MG; Start 04/06/16 at 09:00 Lisinopril (Zestril) 5 mg DAILY PO Last administered on 04/09/16 12:41; Admin Dose 5 MG; Start 04/05/16 at 14:47 Oxycodone HCl (Roxicodone) 5 mg Q4H PRN PO PAIN LEVEL 1-3 Last administered on 04/08/16 23:38; Admin Dose 5 MG; Start 04/05/16 at 14:47 Oxycodone HCl (Roxicodone) 10 mg Q4H PRN PO PAIN LEVEL 4-7 Last administered on 04/09/16 12:38; Admin Dose 10 MG; Start 04/05/16 at 14:47 Bisacodyl (Dulcolax Supp) 10 mg Q12H PRN [place] CONSTIPATION; Start 04/05/16 at 14: 47 Magnesium Hydroxide (Milk Of Mag) 30 ml BID PRN PO CONSTIPATION; Start at 14:47 Sodium Biphosphate/ Sodium Phosphate (Fleet Enema) 133 ml DAILY PRN [place] CONSTIPATION; Start 04/05/16 at 14:47 Docusate Sodium (Colace) 100 mg BID PO Last administered on 04/09/16 08:59; Admin Dose 100 MG; Start 04/05/16 at 14:47 Aspirin (Ecotrin) 325 mg BID PO Last administered on 04/09/16 08:59; Admin Dose 325 MG; Start 04/05/16 at 14:47 Pantoprazole (Protonix Tab) 40 mg BID@06,18 PO Last administered on 04/09/16 06:18; Admin Dose 40 MG; Start 04/05/16 at 14:47 Pregabalin (Lyrica) 50 mg BID PO Last administered on 04/09/16 08:59; Admin Dose 50 MG; Start 04/05/16 at 14:47 Folic Acid (Folic Acid) 1 mg DAILY PO Last administered on 04/09/16 08:59; Admin Dose 1 MG; Start 04/05/16 at 14:47 Multivitamins Therapeutic (Theragran) 1 tab DAILY PO Last administered on 08:59; Admin Dose 1 TAB; Start 04/05/16 at 14:47 Diphenhydramine HCl (Benadryl) 25 mg Q6H PRN PO PRURITUS; Start 04/05/16 at 14: 48 Lactulose (Enulose) 20 gm DAILY PRN PO CONSTIPATION; Start 04/05/16 at 16:30 Senna (Senokot) 2 tab DAILY PO Last administered on 04/09/16t 08:59; Admin Dose 2 TAB; Start 04/06/16 at 09:00 GIO JOSÉ MD Apr 09, 2016 16:07
[2016-04-09 20:57] VITALS: BP 118/58; RESP 18
[2016-04-10] MEDS: oxyCODONE 5 MG TAB PO PRN ×5 (01:46→23:20)
[2016-04-10] MEDS: PANTOPRAZOLE (EC) 40 MG TAB PO SCH ×2 (06:06→17:34)
--- NOTE | 2016-04-10 07:40 | PN ---
Date/Time of Note Date/Time of Note DATE: 04/10/16 TIME: 07:36 Assessment/Plan Lines/Catheters IV Catheter Type (from Nrsg): Saline Lock Shoemaker in Place (from Nrsg): No Assessment/Plan Assessment/Plan Stable in ARU, s/p revision left TKA -cont PT -pain meds -ASA/SCDs for DVT prophylaxis -dressing changed today -towel roll under ankle only -d/c planning. Will tentatively plan to go home on Friday per medicine team Subjective 24 Hr Interval Summary Doing well. Progressing nicely with PT. Mild pain after PT but otherwise improving. Denies f/c. Swelling improving overall. Tentative plan to go home on Friday. Exam/Review of Systems Vital Signs Vitals Vital Signs Date Time Temp Pulse Resp B/P Pulse Ox O2 Delivery O2 Flow Rate FiO2 04/09/16 20:57 97.9 84 18 118/58 98 04/09/16 08:00 Room Air Intake and Output 04/09/16 04/09/16 04/10/16 15:00 23:00 07:00 Intake Total 600 ml 360 ml 710 ml Output Total 2050 ml Balance 600 ml 360 ml -1340 ml Exam Free Text/Dictation Dressing dry Incision clean, dry, and intact without redness or drainage. Mild friability of skin at superior portion of incision. Thigh soft 5/5 Quadriceps, Tibialis Anterior, EHL, Gastroc, Soleus, Peroneals Normal sensation Palpable DT/PT, CR <2 sec No distal edema Results Result Diagram: 04/06/16 0800 04/06/16 0800 RYLEY BRIONES PA-C Apr 10, 2016 07:40
[2016-04-10 08:46] VITALS: BP 112/62; RESP 18
[2016-04-10] MEDS: LISINOPRIL 5 MG TAB PO SCH (09:00)
[2016-04-10] MEDS: PREGABALIN 25 MG CAP PO SCH ×2 (09:25→20:42)
[2016-04-10] MEDS: SENNA TAB PO SCH (09:25)
[2016-04-10] MEDS: FERROUS SULFATE (EC) 325 MG TAB PO SCH (09:25)
[2016-04-10] MEDS: DOCUSATE SODIUM 100 MG CAP PO SCH ×2 (09:25→20:41)
[2016-04-10] MEDS: ASPIRIN (EC) 325 MG TAB PO SCH ×2 (09:25→20:41)
[2016-04-10] MEDS: FOLIC ACID 1 MG TAB PO SCH (09:25)
[2016-04-10] MEDS: MULTIVITAMINS THERAPEUTIC TAB PO SCH (09:27)
--- NOTE | 2016-04-10 11:00 | CONS ---
Date/Time of Note Date/Time of Note DATE: 04/10/16 TIME: 11:00 Consult Date/Type/Reason Admit Date/Time Apr 05, 2016 at 13:42 Subjective Pain under control Objective pulm- cta sba ambulation Vital Signs Date Time Temp Pulse Resp B/P Pulse Ox O2 Delivery O2 Flow Rate FiO2 04/10/16 08:46 98.4 71 18 112/62 99 04/09/16 08:00 Room Air Intake and Output 04/09/16 04/09/16 04/10/16 14:59 22:59 06:59 Intake Total 600 ml 360 ml 710 ml Output Total 2050 ml Balance 600 ml 360 ml -1340 ml Results/Medications Result Diagram: 04/06/16 0800 04/06/16 0800 Medications Current Medications Ferrous Sulfate (Ferrous Sulfate (Ec)) 325 mg DAILY PO Last administered on 09:25; Admin Dose 325 MG; Start 04/06/16 at 09:00 Lisinopril (Zestril) 5 mg DAILY PO Last administered on 04/09/16 12:41; Admin Dose 5 MG; Start 04/05/16 at 14:47 Oxycodone HCl (Roxicodone) 5 mg Q4H PRN PO PAIN LEVEL 1-3 Last administered on 04/10/16 06:07; Admin Dose 5 MG; Start 04/05/16 at 14:47 Oxycodone HCl (Roxicodone) 10 mg Q4H PRN PO PAIN LEVEL 4-7 Last administered on 04/10/16 01:46; Admin Dose 10 MG; Start 04/05/16 at 14:47 Bisacodyl (Dulcolax Supp) 10 mg Q12H PRN [place] CONSTIPATION; Start 04/05/16 at 14: 47 Magnesium Hydroxide (Milk Of Mag) 30 ml BID PRN PO CONSTIPATION; Start at 14:47 Sodium Biphosphate/ Sodium Phosphate (Fleet Enema) 133 ml DAILY PRN [place] CONSTIPATION; Start 04/05/16 at 14:47 Docusate Sodium (Colace) 100 mg BID PO Last administered on 04/10/16 09:25; Admin Dose 100 MG; Start 04/05/16 at 14:47 Aspirin (Ecotrin) 325 mg BID PO Last administered on 04/10/16 09:25; Admin Dose 325 MG; Start 04/05/16 at 14:47 Pantoprazole (Protonix Tab) 40 mg BID@18 PO Last administered on 04/10/16 06:06; Admin Dose 40 MG; Start 04/05/16 at 14:47 Pregabalin (Lyrica) 50 mg BID PO Last administered on 04/10/16 09:25; Admin Dose 50 MG; Start 04/05/16 at 14:47 Folic Acid (Folic Acid) 1 mg DAILY PO Last administered on 04/10/16 09:25; Admin Dose 1 MG; Start 04/05/16 at 14:47 Multivitamins Therapeutic (Theragran) 1 tab DAILY PO Last administered on 09:27; Admin Dose 1 TAB; Start 04/05/16 at 14:47 Diphenhydramine HCl (Benadryl) 25 mg Q6H PRN PO PRURITUS; Start 04/05/16 at 14: 48 Lactulose (Enulose) 20 gm DAILY PRN PO CONSTIPATION; Start 04/05/16 at 16:30 Senna (Senokot) 2 tab DAILY PO Last administered on 04/10/16 09:25; Admin Dose 2 TAB; Start 04/06/16 at 09:00 Assessment/Plan Additional Assessment/Plan rehab- left total knee revision. Progressing well, continue rehab activities. Acute pain syndrome- improved. Hypertension. History of ETOH abuse. WILLIAM CLEMENTE MD Apr 10, 2016 11:00
--- NOTE | 2016-04-10 13:21 | PN ---
Date/Time of Note Date/Time of Note DATE: 04/10/16 TIME: 13:20 Assessment/Plan VTE Prophylaxis VTE Prophylaxis Intervention: SCD's, other Lines/Catheters IV Catheter Type (from Nrs): Saline Lock Urinary Cath still in place: No Assessment/Plan Chief Complaint/Hosp Course ASSESSMENT AND PLAN: 1. 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 The patient has been transferred to acute rehab for further evaluation and physical therapy. Continue physical therapy as per acute rehabilitation physician recommendations. Continue pain medication. 2. Acute anemia is likely secondary to postoperative versus alcohol related. Continue ferrous sulfate. 3. History of alcohol abuse in remission. Continue multivitamin, folic acid and thiamine. 4. For deep venous thrombosis prophylaxis, on aspirin. 5. For gastrointestinal prophylaxis, on proton pump inhibitor. We will continue to monitor patient closely. Further recommendations, management and treatment as per clinical course. Problems: Subjective 24 Hr Interval Summary Free Text/Dictation No acute changes Able to ambulate with minimal assist, Minimal discomfort during ambulation Denies of any calf pain Exam/Review of Systems Vital Signs Vitals Vital Signs Date Time Temp Pulse Resp B/P Pulse Ox O2 Delivery O2 Flow Rate FiO2 04/10/16 08:46 98.4 71 18 112/62 99 04/09/16 08:00 Room Air Intake and Output 04/09/16 04/09/16 04/10/16 15:00 23:00 07:00 Intake Total 600 ml 360 ml 710 ml Output Total 2050 ml Balance 600 ml 360 ml -1340 ml Exam General: The patient is well-developed, Not in acute distress. HEENT: Atraumatic, normocephalic. The pupils are equal and round . Neck: Supple with full range of motion. Chest: Normal expansion of the thorax during inspiration Lungs: Clear to auscultation bilaterally Heart: Normal S1-S2, Regular rhythm and rate. Abdomen: Soft , nontender, nondistended , bowel sounds are present. Extremities: Left lower extremity/knee area is wrapped with Emilio, no edema no cyanosis Neurologic: Normal mental status,The patient is awake, alert and oriented . Results Result Diagram: 04/06/16 0800 04/06/16 0800 Medications Medications Current Medications Ferrous Sulfate (Ferrous Sulfate (Ec)) 325 mg DAILY PO Last administered on t 09:25; Admin Dose 325 MG; Start 04/06/16 at 09:00 Lisinopril (Zestril) 5 mg DAILY PO Last administered on 04/09/16 12:41; Admin Dose 5 MG; Start 04/05/16 at 14:47 Oxycodone HCl (Roxicodone) 5 mg Q4H PRN PO PAIN LEVEL 1-3 Last administered on 04/10/16 06:07; Admin Dose 5 MG; Start 04/05/16 at 14:47 Oxycodone HCl (Roxicodone) 10 mg Q4H PRN PO PAIN LEVEL 4-7 Last administered on 04/10/16 11:32; Admin Dose 10 MG; Start 04/05/16 at 14:47 Bisacodyl (Dulcolax Supp) 10 mg Q12H PRN [place] CONSTIPATION; Start 04/05/16 at 14: 47 Magnesium Hydroxide (Milk Of Mag) 30 ml BID PRN PO CONSTIPATION; Start at 14:47 Sodium Biphosphate/ Sodium Phosphate (Fleet Enema) 133 ml DAILY PRN [place] CONSTIPATION; Start 04/05/16 at 14:47 Docusate Sodium (Colace) 100 mg BID PO Last administered on 04/10/16 09:25; Admin Dose 100 MG; Start 04/05/16 at 14:47 Aspirin (Ecotrin) 325 mg BID PO Last administered on 04/10/16 09:25; Admin Dose 325 MG; Start 04/05/16 at 14:47 Pantoprazole (Protonix Tab) 40 mg BID@ PO Last administered on 04/10/16 06:06; Admin Dose 40 MG; Start 04/05/16 at 14:47 Pregabalin (Lyrica) 50 mg BID PO Last administered on 04/10/16 09:25; Admin Dose 50 MG; Start 04/05/16 at 14:47 Folic Acid (Folic Acid) 1 mg DAILY PO Last administered on 04/10/16 09:25; Admin Dose 1 MG; Start 04/05/16 at 14:47 Multivitamins Therapeutic (Theragran) 1 tab DAILY PO Last administered on 09:27; Admin Dose 1 TAB; Start 04/05/16 at 14:47 Diphenhydramine HCl (Benadryl) 25 mg Q6H PRN PO PRURITUS; Start 04/05/16 at 14: 48 Lactulose (Enulose) 20 gm DAILY PRN PO CONSTIPATION; Start 04/05/16 at 16:30 Senna (Senokot) 2 tab DAILY PO Last administered on 04/10/16t 09:25; Admin Dose 2 TAB; Start 04/06/16 at 09:00 GIO JOSÉ MD Apr 10, 2016 13:21
[2016-04-10 22:47] VITALS: BP 119/64; RESP 16
[2016-04-11] MEDS: oxyCODONE 5 MG TAB PO PRN ×4 (04:03→20:06)
[2016-04-11] MEDS: PANTOPRAZOLE (EC) 40 MG TAB PO SCH ×2 (06:05→18:00)
[2016-04-11 08:00] VITALS: BP 119/64; PULSE 80; RESP 18
[2016-04-11] MEDS: DOCUSATE SODIUM 100 MG CAP PO SCH ×2 (09:04→20:06)
[2016-04-11] MEDS: FERROUS SULFATE (EC) 325 MG TAB PO SCH (09:04)
[2016-04-11] MEDS: PREGABALIN 25 MG CAP PO SCH ×2 (09:05→20:05)
[2016-04-11] MEDS: MULTIVITAMINS THERAPEUTIC TAB PO SCH (09:05)
[2016-04-11] MEDS: FOLIC ACID 1 MG TAB PO SCH (09:05)
[2016-04-11] MEDS: LISINOPRIL 5 MG TAB PO SCH (09:05)
[2016-04-11] MEDS: SENNA TAB PO SCH (09:05)
[2016-04-11] MEDS: ASPIRIN (EC) 325 MG TAB PO SCH ×2 (09:09→20:06)
[2016-04-11 09:23] VITALS: BP 120/61; RESP 20
--- NOTE | 2016-04-11 12:22 | CONS ---
Date/Time of Note Date/Time of Note DATE: 04/11/16 TIME: 12:22 Consult Date/Type/Reason Admit Date/Time Apr 05, 2016 at 13:42 Subjective Doing well Objective pulm- CTA sba ambulation Vital Signs Date Time Temp Pulse Resp B/P Pulse Ox O2 Delivery O2 Flow Rate FiO2 04/11/16 09:23 97.8 80 20 120/61 99 04/09/16 08:00 Room Air Intake and Output 04/10/16 04/10/16 04/11/16 14:59 22:59 06:59 Intake Total 720 ml 360 ml 350 ml Output Total 1850 ml Balance 720 ml 360 ml -1500 ml Results/Medications Medications Current Medications Ferrous Sulfate (Ferrous Sulfate (Ec)) 325 mg DAILY PO Last administered on 09:04; Admin Dose 325 MG; Start 04/06/16 at 09:00 Lisinopril (Zestril) 5 mg DAILY PO Last administered on 04/11/16 09:05; Admin Dose 5 MG; Start 04/05/16 at 14:47 Oxycodone HCl (Roxicodone) 5 mg Q4H PRN PO PAIN LEVEL 1-3 Last administered on 04/11/16 04:03; Admin Dose 5 MG; Start 04/05/16 at 14:47 Oxycodone HCl (Roxicodone) 10 mg Q4H PRN PO PAIN LEVEL 4-7 Last administered on 04/11/16 09:16; Admin Dose 10 MG; Start 04/05/16 at 14:47 Bisacodyl (Dulcolax Supp) 10 mg Q12H PRN [place] CONSTIPATION; Start 04/05/16 at 14: 47 Magnesium Hydroxide (Milk Of Mag) 30 ml BID PRN PO CONSTIPATION; Start at 14:47 Sodium Biphosphate/ Sodium Phosphate (Fleet Enema) 133 ml DAILY PRN [place] CONSTIPATION; Start 04/05/16 at 14:47 Docusate Sodium (Colace) 100 mg BID PO Last administered on 04/11/16 09:04; Admin Dose 100 MG; Start 04/05/16 at 14:47 Aspirin (Ecotrin) 325 mg BID PO Last administered on 04/11/16 09:09; Admin Dose 325 MG; Start 04/05/16 at 14:47 Pantoprazole (Protonix Tab) 40 mg BID@06,18 PO Last administered on 04/11/16 06:05; Admin Dose 40 MG; Start 04/05/16 at 14:47 Pregabalin (Lyrica) 50 mg BID PO Last administered on 04/11/16 09:05; Admin Dose 50 MG; Start 04/05/16 at 14:47 Folic Acid (Folic Acid) 1 mg DAILY PO Last administered on 04/11/16 09:05; Admin Dose 1 MG; Start 04/05/16 at 14:47 Multivitamins Therapeutic (Theragran) 1 tab DAILY PO Last administered on 09:05; Admin Dose 1 TAB; Start 04/05/16 at 14:47 Diphenhydramine HCl (Benadryl) 25 mg Q6H PRN PO PRURITUS; Start 04/05/16 at 14: 48 Lactulose (Enulose) 20 gm DAILY PRN PO CONSTIPATION; Start 04/05/16 at 16:30 Senna (Senokot) 2 tab DAILY PO Last administered on 04/11/16 09:05; Admin Dose 2 TAB; Start 04/06/16 at 09:00 Assessment/Plan Additional Assessment/Plan rehab- left total knee revision. Anticipate dc tomorrow Acute pain syndrome- improved. Hypertension. History of ETOH abuse. WILLIAM CLEMENTE MD Apr 11, 2016 12:22
--- NOTE | 2016-04-11 13:48 | PN ---
Date/Time of Note Date/Time of Note DATE: 04/11/16 TIME: 13:47 Assessment/Plan VTE Prophylaxis VTE Prophylaxis Intervention: other Lines/Catheters IV Catheter Type (from [facility] [place]): Saline Lock Urinary Cath still in place: No Assessment/Plan Chief Complaint/Hosp Course ASSESSMENT AND PLAN: 1. 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 The patient has been transferred to acute rehab for further evaluation and physical therapy. Continue physical therapy as per acute rehabilitation physician recommendations. Continue pain medication. 2. Acute anemia is likely secondary to postoperative versus alcohol related. Continue ferrous sulfate. 3. History of alcohol abuse in remission. Continue multivitamin, folic acid and thiamine. 4. For deep venous thrombosis prophylaxis, on aspirin. 5. For gastrointestinal prophylaxis, on proton pump inhibitor. We will continue to monitor patient closely. Further recommendations, management and treatment as per clinical course. Problems: Subjective 24 Hr Interval Summary Free Text/Dictation No acute changes Denies of having any chest pain or shortness of breath Ambulates with minimal assist Exam/Review of Systems Vital Signs Vitals Vital Signs Date Time Temp Pulse Resp B/P Pulse Ox O2 Delivery O2 Flow Rate FiO2 04/11/16 09:23 97.8 80 20 120/61 99 04/09/16 08:00 Room Air Intake and Output 04/10/16 04/10/16 04/11/16 14:59 22:59 06:59 Intake Total 720 ml 360 ml 350 ml Output Total 1850 ml Balance 720 ml 360 ml -1500 ml Exam General: The patient is well-developed, Not in acute distress. HEENT: Atraumatic, normocephalic. The pupils are equal and round . Neck: Supple with full range of motion. Chest: Normal expansion of the thorax during inspiration Lungs: Clear to auscultation bilaterally Heart: Normal S1-S2, Regular rhythm and rate. Abdomen: Soft , nontender, nondistended , bowel sounds are present. Extremities: Normal to inspection, no edema no cyanosis, left knee in Emilio wrap Neurologic: Normal mental status,The patient is awake, alert and oriented . Medications Medications Current Medications Ferrous Sulfate (Ferrous Sulfate (Ec)) 325 mg DAILY PO Last administered on t 09:04; Admin Dose 325 MG; Start 04/06/16 at 09:00 Lisinopril (Zestril) 5 mg DAILY PO Last administered on 04/11/16 09:05; Admin Dose 5 MG; Start 04/05/16 at 14:47 Oxycodone HCl (Roxicodone) 5 mg Q4H PRN PO PAIN LEVEL 1-3 Last administered on 04/11/16 04:03; Admin Dose 5 MG; Start 04/05/16 at 14:47 Oxycodone HCl (Roxicodone) 10 mg Q4H PRN PO PAIN LEVEL 4-7 Last administered on 04/11/16 09:16; Admin Dose 10 MG; Start 04/05/16 at 14:47 Bisacodyl (Dulcolax Supp) 10 mg Q12H PRN [place] CONSTIPATION; Start 04/05/16 at 14: 47 Magnesium Hydroxide (Milk Of Mag) 30 ml BID PRN PO CONSTIPATION; Start at 14:47 Sodium Biphosphate/ Sodium Phosphate (Fleet Enema) 133 ml DAILY PRN [place] CONSTIPATION; Start 04/05/16 at 14:47 Docusate Sodium (Colace) 100 mg BID PO Last administered on 04/11/16 09:04; Admin Dose 100 MG; Start 04/05/16 at 14:47 Aspirin (Ecotrin) 325 mg BID PO Last administered on 04/11/16 09:09; Admin Dose 325 MG; Start 04/05/16 at 14:47 Pantoprazole (Protonix Tab) 40 mg BID@06,18 PO Last administered on 04/11/16 06:05; Admin Dose 40 MG; Start 04/05/16 at 14:47 Pregabalin (Lyrica) 50 mg BID PO Last administered on 04/11/16 09:05; Admin Dose 50 MG; Start 04/05/16 at 14:47 Folic Acid (Folic Acid) 1 mg DAILY PO Last administered on 04/11/16 09:05; Admin Dose 1 MG; Start 04/05/16 at 14:47 Multivitamins Therapeutic (Theragran) 1 tab DAILY PO Last administered on 09:05; Admin Dose 1 TAB; Start 04/05/16 at 14:47 Diphenhydramine HCl (Benadryl) 25 mg Q6H PRN PO PRURITUS; Start 04/05/16 at 14: 48 Lactulose (Enulose) 20 gm DAILY PRN PO CONSTIPATION; Start 04/05/16 at 16:30 Senna (Senokot) 2 tab DAILY PO Last administered on 04/11/16 09:05; Admin Dose 2 TAB; Start 04/06/16 at 09:00 GIO JOSÉ MD Apr 11, 2016 13:48
[2016-04-11 19:43] VITALS: BP 117/67; RESP 18
[2016-04-12] MEDS: oxyCODONE 5 MG TAB PO PRN ×3 (03:28→13:10)
[2016-04-12] MEDS: PANTOPRAZOLE (EC) 40 MG TAB PO SCH (06:49)
--- NOTE | 2016-04-12 08:33 | PN ---
Date/Time of Note Date/Time of Note DATE: 04/12/16 TIME: 08:32 Assessment/Plan Lines/Catheters IV Catheter Type (from Nrsg): Saline Lock Shoemaker in Place (from Nrsg): No Assessment/Plan Assessment/Plan Stable in ARU, s/p revision left TKA -cont PT -pain meds -ice and elevate -dressing change done today -ASA/SCDs -plan to go home today. Should continue ASA, pain meds, protonix at home -follow up in the office on 04/17/[address] Clay at 10am Subjective 24 Hr Interval Summary Doing well. Progressing nicely with PT. States pain is much better overall. Denies any f/c. Swelling markedly improved Plan to d/c home tooday. Exam/Review of Systems Vital Signs Vitals Vital Signs Date Time Temp Pulse Resp B/P Pulse Ox O2 Delivery O2 Flow Rate FiO2 04/11/16 19:43 98.3 84 18 117/67 98 04/11/16 08:00 Room Air Intake and Output 04/11/16 04/11/16 04/12/16 15:00 23:00 07:00 Intake Total 1000 ml 420 ml 650 ml Output Total 2950 ml Balance 1000 ml 420 ml -2300 ml Exam Free Text/Dictation Dressing dry Incision clean, dry, and intact without redness or drainage Thigh soft 5/5 Quadriceps, Tibialis Anterior, EHL, Gastroc, Soleus, Peroneals Normal sensation Palpable DT/PT, CR <2 sec No distal edema RYLEY BRIONES PA-C Apr 12, 2016 08:33
[2016-04-12] MEDS: PREGABALIN 25 MG CAP PO SCH (09:00)
[2016-04-12] MEDS: ASPIRIN (EC) 325 MG TAB PO SCH (09:00)
[2016-04-12] MEDS: LISINOPRIL 5 MG TAB PO SCH (09:01)
[2016-04-12] MEDS: DOCUSATE SODIUM 100 MG CAP PO SCH (09:01)
[2016-04-12] MEDS: SENNA TAB PO SCH (09:01)
[2016-04-12] MEDS: FERROUS SULFATE (EC) 325 MG TAB PO SCH (09:01)
[2016-04-12] MEDS: MULTIVITAMINS THERAPEUTIC TAB PO SCH (09:02)
[2016-04-12] MEDS: FOLIC ACID 1 MG TAB PO SCH (09:02)
--- NOTE | 2016-04-17 00:04 | DS ---
DATE OF ADMISSION: 04/05/2016 DATE OF DISCHARGE: 04/12/2016 ADMISSION DIAGNOSES: 1. Other orthopedic injury with left total knee revision. 2. Acute pain syndrome. 3. Hypertension. 4. History of ethyl alcohol abuse. 5. Degenerative joint disease with notable pain in the right shoulder. 6. Impairments in self-care and mobility. DISCHARGE DIAGNOSES: 1. Other orthopedic injury with left total knee revision. 2. Acute pain syndrome. 3. Hypertension. 4. History of ethyl alcohol abuse. 5. Degenerative joint disease. 6. Improvements in self-care and mobility. HOSPITAL COURSE: The patient was admitted for comprehensive interdisciplinary acute rehab and made excellent functional gains during the course of the stay. The patient progressed from initial minim al to moderate assist for self-care and mobility tasks and progressed to the point of supervised to modified independent for all areas of self-care and mobility including ambulating over 150 feet with the use of a front-wheel walker. The patient is being discharged home with recommendation of home health physical therapy and occupational therapy followup. DISCHARGE MEDICATIONS: Per the medication reconciliation sheet. CONDITION ON DISCHARGE: Stable. Dictated By: WILLIAM PARHAM/LINDSEY Conf#: [id number] DID#: [id number]
== END 2016-04-12 14:55 | disposition home health service (06) | DRG 560 ==
LOC: VRC 13:42
PROVIDERS: ADMIT Physical Medicine & Rehabilitation; ATTEND Family Medicine
PROC: F07Z5ZZ Bed Mobility Treatment (ICD-10-PCS; principal; 2016-04-05)
PROC: F08Z2ZZ Grooming/Personal Hygiene Treatment (ICD-10-PCS; 2016-04-05)
DX: Z47.1 Aftercare following joint replacement surgery (principal); D62 Acute posthemorrhagic anemia; I10 Essential (primary) hypertension; Z96.652 Presence of left artificial knee joint; R52 Pain, unspecified; M19.90 Unspecified osteoarthritis, unspecified site
CPT/HCPCS: 80053; 81003; 85025; 87081; 87086; 95852; 97003; 97110; 97112; 97116; 97150; 97162; 97165; 97530; 97535

== ENCOUNTER → 2016-04-17 | Outpatient (CLI) | payer OTHER ==
[~2016-04-17] MED LIST changes: +TRAM50TA2 PO; -ULT50 PO
--- NOTE | 2016-04-17 11:05 | RADRPT ---
PROCEDURE: XR left knee. CLINICAL INDICATION: Knee pain. TECHNIQUE: AP and lateral weightbearing views are available for review. COMPARISON: 04/02/2016 FINDINGS: There is a constrained total knee replacement. There is no evidence of loosening of the prosthesis. The osseous structures are normal in mineralization, architecture and alignment No acute fracture or dislocation is seen.No osseous lesions are identified. The soft tissues are unremarkable . IMPRESSION: Unremarkable constrained total knee replacement. RPTAT: HGDB .Leonardo Petit MD, MD Date Time Electronically viewed and signed by .Leonardo Petit MD, on 04/17/2016 11:04 .B/
--- NOTE | 2016-04-17 16:53 | HKNOTE ---
DATE OF SERVICE: 04/17/2016 INTERVAL HISTORY: The patient presents today for a postoperative evaluation on his left knee. He i s now 15 days status post revision of left total knee arthroplasty. He is doing well overall. He i s home from the acute rehab facility and doing home health. He denies significant pain. He denies any fevers or chills. He is happy so far with his surgery. He presents today for a postoperative ev aluation. PHYSICAL EXAMINATION: GENERAL: On exam today, he is alert and oriented x4 in no acute distress. KNEE: Exam of the right knee demonstrates sutures to be in place. There is some mild residual soft tissue swelling. No ecchymosis. Range of motion is 0 to 100 degrees. Varus and valgus forces are stable. The incision is clean, dry and intact. Compartments are soft. Gladys's sign is negative. He is neurovascularly intact distally. IMAGING DATA: X-ray of the left retained today and reviewed by me showed good anatomic fixation of both the femur and tibial components. There is no fracture or dislocation identified. ASSESSMENT: Fifteen days status post left revision of total knee arthroplasty. PLAN: 1. Sutures removed, Steri-Strips applied. 2. Continue home health. 3. Continue aspirin 325 mg b.i.d. for DVT prophylaxis. 4. Continue pain meds as needed. 5. Will transition to outpatient physical therapy. 6. Follow up in 4 weeks for repeat evaluation and x-rays. Dictated By: RYLEY WILKINS for RADHA MACHADO/LINDSEY Conf#: [id number] DID#: [id number]
== END | disposition home or self-care (01) ==
LOC: HKI 10:07
PROVIDERS: ATTEND Orthopaedic Surgery
DX: Z47.1 Aftercare following joint replacement surgery (principal); Z96.652 Presence of left artificial knee joint; Z79.82 Long term (current) use of aspirin
CPT/HCPCS: 73560; Z7500; G0463

== ENCOUNTER → 2016-05-15 | Outpatient (CLI) | payer OTHER | END | disposition home or self-care (01) | LOC: HKI 09:18 | PROVIDERS: ATTEND Orthopaedic Surgery | DX: Z47.1 Aftercare following joint replacement surgery (principal); T84.093D Other mechanical complication of internal left knee prosthesis, subsequent encounter; T84.84XD Pain due to internal orthopedic prosthetic devices, implants and grafts, subsequent encounter; Z96.652 Presence of left artificial knee joint | CPT/HCPCS: G0463 ==

== ENCOUNTER → 2016-07-15 | Outpatient (CLI) | payer OTHER ==
--- NOTE | 2016-07-15 12:40 | RADRPT ---
PROCEDURE: XR left knee. CLINICAL INDICATION: Knee pain. TECHNIQUE: AP weightbearing, lateral weightbearing and sunrise views are available for review. 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 There is no evidence of loosening of the prosthesis. There is no evidence of hardware failure. The osseous structures are normal in mineralization, archi tecture and alignment No acute fracture or dislocation is seen.No osseous lesions are identified. T he soft tissues are unremarkable . there is a small suprapatellar joint effusion IMPRESSION: Unremarkable constrained total knee replacement. Small suprapatellar joint effusion RPTAT: [facility] .Leonardo Petit MD, MD Date Time Electronically viewed and signed by .Leonrado Petit MD, on 07/15/2016 12:40 .B/
== END | disposition home or self-care (01) ==
LOC: HKI 09:24
PROVIDERS: ATTEND Orthopaedic Surgery
DX: Z09 Encounter for follow-up examination after completed treatment for conditions other than malignant neoplasm (principal); Z96.652 Presence of left artificial knee joint
CPT/HCPCS: G0463